=== PATIENT | male | born 1960 | race Caucasian/White ===

== ENCOUNTER 2018-07-13 18:58 | Emergency (ER) | payer BC, SELFPAY ==
[2018-07-13 19:00] VITALS: BP 211/87; PULSE 52; RESP 28; TEMP 36.3; BMI 40.6
[2018-07-13] MEDS: 0.9% Normal Saline 1,000 ML 250 ML IV (20:14)
[2018-07-13] MEDS: Ondansetron 4 MG/2 ML Vial IV (20:14)
[2018-07-13] MEDS: Ketorolac 30 MG/ML Syringe IV (20:15)
[2018-07-13] MEDS: Morphine 4 MG/ML Syringe IV (20:16)
[2018-07-13 20:21] LABS: Absolute Lymphocyte Count 2.73 X10^3/ul (0.83-4.51); Absolute Neutrophil Count 6.1 X10^3/uL (2.0-7.7); Basophil# 0.04 X10^3/uL; Basophil% 0.4 % (0-1); Eosinophil# 0.21 X10^3/uL; Eosinophils% 2.1 % (0-5); Hematocrit 42.1 % (40-54); Hemoglobin 14.8 g/dl (13.0-16.5); Lymphocyte # 2.73 X10^3/ul (4.0); Lymphocyte % 26.8 % (19-41); Mean Corp Hgb Conc 35.2 g/gl (32-36); Mean Corpuscular Hgb 33.7 pg (27.0-32.0); Mean Corpuscular Volume 95.9 fL (80-94); Mean Platelet Vol. 10.5 fl (6.2-12.0); Monocyte# 1.08 X10^3/uL; Monocyte% 10.6 % (0-10); Neutrophil # 6.07 X10^3/uL (2.7-7.7); Neutrophil % 59.7 % (47-70); POSITIVE COUNT NO; POSITIVE DIFFERENTIAL NO; POSITIVE MORPHOLOGY NO; Platelet Count 266 K/mm3 (150-450); RBC Distribution Width CV 12.3 % (11.6-14.6); Red Blood Count 4.39 M/mm3 (4.6-6.2); White Blood Count 10.2 K/mm3 (4.4-11.0)
[2018-07-13 21:03] LABS: Anion Gap 6 (5-15); BUN 24 mg/dL (7-18); BUN/Creat Ratio 15.5 RATIO (10-20); Calcium,Total 8.8 mg/dL (8.5-10.1); Chloride 107 mmol/L (98-107); Creatinine, Serum 1.55 mg/dL (0.70-1.30); EST Glomerular Filtration Rate 49 mL/min (>60); Est Glom Filt Rate - Afr Amer 59 mL/min (>60); Estimated Creatinine Clearance 50.26 ml/min; Glucose 109 mg/dL (74-106); Potassium 4.6 mmol/L (3.5-5.1); Sodium Level 140 mmol/L (136-145)
[2018-07-13 21:04] VITALS: BP 148/69; RESP 15; O2SAT 95
[2018-07-13 21:09] LABS: Bacteria 0 SEEN /hpf (None Seen); Mucous, Urine 0 SEEN /hpf (<or=2+); Squamous Epithelial Cells - UA 0 SEEN /hpf (0-5); White Blood Cells 0 SEEN /hpf (0-5)
[2018-07-13 21:13] LABS: Color, Urine Yellow (Yellow); Glucose, Dipstick Normal (Normal); Ketone-Dipstick Negative (Negative); Leukocyte Esterase-Dipstick Negative /ul (Negative); Nitrite-Dipstick Negative (Negative); Occult Blood-Urine 25 /ul (Negative); Protein-Dipstick Negative (Negative); Urine Bilirubin Dipstick Negative (Negative); Urine Clarity Clear (Clear); Urine Urobilinogen Normal (Normal)
[2018-07-13 21:40] LABS: Red Blood Cells-Urine 5-10 SEEN /hpf (0-5)
--- NOTE | 2018-07-13 22:08 | ED.VISSUMM ---
- ER Visit Summary Date of Service: 07/13/18 Chief Complaint: Abrupt onset of left flank pain with nausea History of Present Illness: The patient is a 57 M who presents with acute left flank pain at rest with nausea. He denies fever, chills or night sweats. He denies any ocular, visual or auditory symptoms. He denies any cardiac or respiratory symptoms. He has no known history of renal ureterolithiasis. He does complain of discomfort in his penis question dysuria. He denies trauma. He denies skin lesions or rash. He denies any past medical history. He has no allergies. Physical Examination: Patient appears uncomfortable. Blood pressure is elevated to 11/87. Respiratory rate was recorded at 28 and heart rate of 52. HEENT exam is unremarkable. Lungs are clear to auscultation. Heart is regular. Abdomen is soft nontender. There is no CVA tenderness. Lower extremity exam is unremarkable. Neuro exam is nonfocal. Test Results: CBC is unremarkable. Basic metabolic panel is marked for an elevated BUN and creatinine are 24 1.55. Urine is remarkable for microscopic hematuria. CT of the abdomen pelvis without contrast reveals a 2 mm stone at the distal portion of the UVJ with mild hydroureter and hydronephrosis. Emergency Department Course and Treatment: IV was established and patient was treated with Toradol since there is no history of renal disease and he has no medical problems. He also received 4 mg of morphine and 4 mg of Zofran. I was informed that his pain was returning. He was given additional dose of morphine. When he was reassessed at 2210 he was pain-free. He was informed of his results and he was informed to stop taking nightly doses of ibuprofen. Treatment Plan: He was referred to urology and given a prescription for Percocet. Since pharmacies are closed he was given a home pack of Percocet. Disposition: Discharged in stable improved condition with outpatient urology referral Impression: 1. Left flank pain secondary to obstructing left UVJ stone 2 mm with hydroureter nephrosis 2. Renal insufficiency This note was generated with Prescreen dictation software. It may contain incorrect words, spelling, and punctuation that were not noted in review of the chart prior to signing ED Disposition - Plan for ED Patient: Disposition: Home or Assisted Living Chief Complaint: Flank Pain Instructions: ED Stone Renal W Colic, ED Insufficiency Renal Prescriptions: Oxycodone HCl/Acetaminophen [Percocet 5/325] 1 tab PO Q6H PRN PRN 5 Days #20 tab PRN Reason: Pain Referrals: Hilario Sharif MD [STAFF PHYSICIAN] - 5-7 Days Additional Instructions: Return immediately if you develop a temperature greater than 100 and shaking chills. Return if the pain is not managed with medication prescribed or you have persistent vomiting
[2018-07-13] MEDS: oxyCODONE 5 MG Tablet PO (22:34)
[2018-07-13 22:40] VITALS: BP 128/69; PULSE 60; RESP 15; O2SAT 94
== END 2018-07-13 22:38 | disposition home or self-care (01) ==
PROVIDERS: Emergency Provider Emergency Medicine; Family Provider Internal Medicine; PCP Internal Medicine
DX: N13.2 Hydronephrosis with renal and ureteral calculous obstruction (principal); N28.9 Disorder of kidney and ureter, unspecified; E66.9 Obesity, unspecified; Z68.41 Body mass index [BMI] 40.0-44.9, adult
CPT/HCPCS: 74176; 80048; 81001; 85025; 96361; 96374; 96375; 99283; J7030; A4216; J2405

== ENCOUNTER → 2018-07-30 09:28 | Outpatient (CLI) | payer BC, SELFPAY ==
[2018-07-30 10:18] LABS: Color, Urine Yellow (Yellow); Glucose, Dipstick Normal (Normal); Ketone-Dipstick Negative (Negative); Leukocyte Esterase-Dipstick Negative /ul (Negative); Nitrite-Dipstick Negative (Negative); Occult Blood-Urine Negative /ul (Negative); Protein-Dipstick Negative (Negative); Urine Bilirubin Dipstick Negative (Negative); Urine Clarity Clear (Clear); Urine Urobilinogen Normal (Normal)
[2018-07-30 10:56] LABS: Creatinine, Serum 1.03 mg/dL (0.70-1.30); EST Glomerular Filtration Rate 79 mL/min (>60); Est Glom Filt Rate - Afr Amer 95 mL/min (>60)
== END ==
PROVIDERS: Family Provider Internal Medicine; PCP Internal Medicine; Visit Provider Nurse Practitioner Adult Health
DX: N20.1 Calculus of ureter (principal); R79.89 Other specified abnormal findings of blood chemistry
CPT/HCPCS: 36415; 81002; 82565

== ENCOUNTER → 2021-04-25 08:54 | Outpatient (CLI) | payer OTHER, SELFPAY ==
[2021-04-25 12:46] LABS: Anion Gap 6 (5-15); BUN 22 mg/dL (7-18); BUN/Creat Ratio 22.4 RATIO (10-20); Calcium,Total 8.5 mg/dL (8.5-10.1); Chloride 108 mmol/L (98-107); Cholesterol 206 mg/dL (200); Creatinine, Serum 0.98 mg/dL (0.70-1.30); EST Glomerular Filtration Rate 82 mL/min (>60); Est Glom Filt Rate - Afr Amer 100 mL/min (>60); Glucose 106 mg/dL (74-106); High Density Lipoprotein 38 mg/dL; Potassium 3.9 mmol/L (3.5-5.1); Sodium Level 140 mmol/L (136-145); Triglycerides 103 mg/dL; Very Low Density Lipoprotein 21 mg/dL (5-40)
== END ==
PROVIDERS: PCP Family Medicine; Referring Provider Family Medicine; Visit Provider Family Medicine
DX: Z12.5 Encounter for screening for malignant neoplasm of prostate (principal); Z13.1 Encounter for screening for diabetes mellitus; Z13.220 Encounter for screening for lipoid disorders
CPT/HCPCS: 36415; 80048; 80061; 84153; G0103

== ENCOUNTER 2021-07-05 19:09 | Emergency (ER) | payer OTHER, SELFPAY ==
[2021-07-05 19:09] VITALS: BP 209/163; PULSE 74; RESP 18; TEMP 36.6; O2SAT 99; BMI 39.5
--- NOTE | 2021-07-05 19:22 | RAD_ITS ---
STUDY: X-RAY - SOFT TISSUE NECK REASON FOR EXAM: Male, 60 years old. Foreign body. Patient feels that a piece of meat stuck in the throat or upper chest. TECHNIQUE: 2 view(s) of the neck were obtained. COMPARISON: Chest, 07/05/2021 FINDINGS: Normal visualized nasopharynx, oropharynx, hypopharynx. Normal epiglottis. Normal visualized subglottic tracheal air column. Normal prevertebral soft tissue structures. Normal visualized osseous structures. The soft tissue structures are unremarkable. RAD/Neck for Soft Tissue IMPRESSION: Normal x-ray soft tissue neck. Electronically Signed: Facundo Doherty DO at 19:43 EDT Tel [phone], Service support ,
--- NOTE | 2021-07-05 19:25 | RAD_ITS ---
STUDY: X-RAY CHEST REASON FOR EXAM: Male, 60 years old. Foreign body. Patient feels that a piece of meat stuck in throat or upper chest. TECHNIQUE: PA and lateral views of the chest. COMPARISON: None. FINDINGS: The lungs are clear and expanded. There is no demonstrated pleural abnormality. Normal size heart. Normal mediastinum and eleni. Normal visualized pulmonary arteries. Normal visualized aortic arch and descending thoracic aorta. Normal visualized thoracic spine. Normal visualized ribs, clavicles, and shoulders. There is no demonstrated abnormality of the visualized soft tissue structures of the upper abdomen. RAD/Chest PA and Lateral IMPRESSION: No acute cardiopulmonary disease. Electronically Signed: Facundo Doherty DO at 19:43 EDT Tel [phone], Service support ,
--- NOTE | 2021-07-05 19:54 | ED.RN ---
WHILE WAITING TO BE SEEN, COCA COLA WAS GIVEN TO THE PATIENT. HE WAS ABLE TO SIP ON COKE AND EVENTUALLY PIECE OF MEAT WENT DOWN. NO LONGER COUGHING/CHOKING. BREATHING WITHOUT DISTRESS.
--- NOTE | 2021-07-05 22:07 | EDS_ITS ---
HPI HPI - GI History of Present Illness Chief Complaint: Foreign Body Informant: patient and spouse/S.O. Narrative Narrative: Patient presents with suspected meat impaction?esophageal. He was eating pulled pork quickly while rushing to get ready for a Zoom meeting. He swallowed and then had trouble getting the piece to go all the way down. He tried to drink some water and it did not work. After he got here, he drank some coke. This did not help. He was getting x-rays. He moved his neck up in a certain way and just felt as though it passed. He has no symptoms now at all. He does not have breathing problems. He never had pain or discomfort. He has not had issues like this in the past. He has no history of GERD/reflux. [facility] Medical History Sleep apnea Home Medications NK 07/05/21 [History Last Taken Unknown] Allergy/AdvReac Type Severity Reaction Status Date / Time No Known Allergies Allergy Verified 07/05/21 19:24 Social History Smoking Status: Never smoker ROS ROS ED Constitutional Constitutional ED: Denies chills or fever(s) ENT ENT ED: Reports other Details: Foreign body sensation?now resolved. Cardiovascular Cardiovascular: Denies chest pain or palpitations Respiratory/Chest Respiratory/Chest: Denies cough or dyspnea Gastrointestinal Gastrointestinal: Reports other Details: See history of present illness ; Denies nausea or vomiting Musculoskeletal Musculoskeletal: Denies back pain or neck pain Allergic/Immunologic Allergic/Immunologic ED: Denies mouth swelling, tongue swelling or urticaria EXAM Physical Exam Const Vital Signs: 07/05/21 19:09 Temperature 98 F Temperature Source Temporal Pulse Rate 74 Respiratory Rate 18 Blood Pressure 209/163 H Blood Pressure Mean 178 Pulse Ox 99 Positive well nourished and well developed General Appearance ED: well developed and NAD HEENT Reports moist mucous membranes HEENT Narrative: Normal voice and handling secretions. I see no lesions masses or abdomen. normocephalic and atraumatic Eyes PERRL and EOMs intact bilaterally Neck no lymphadenopathy and supple Neck Narrative: No stridor mass or tenderness. Resp normal respiratory effort and clear to auscultation bilaterally Cardio regular rate and regular rhythm GI non-tender and non-distended Palpation: soft Extremity full ROM Neuro Sensorium / Orientation: alert and oriented to person Psych mental status grossly normal Skin Lesions: no lesions Rashes: no rashes MDM MDM MDM Narrative Medical decision making narrative: Patient had story consistent with foreign body meat impaction. It is now resolved. I had him drink Diet Coke on the room. He drank over half the can. It goes down and he feels asymptomatic. We will get him home at this time. X-rays of the neck and chest were already been done. There are no acute process. He will get [id number] PPI. He also needs to follow-up about his blood pressure. He does have an appointment on approximately the 14 or 15 of this coming week for this. Radiography Diagnostic Testing: Radiology Impression Soft Tissue Neck X-Ray 07/05/21 19:22 IMPRESSION: Normal x-ray soft tissue neck. Electronically Signed: Facundo Doherty DO at 19:43 EDT Tel [phone], Service support , Chest X-Ray 07/05/21 19:25 IMPRESSION: No acute cardiopulmonary disease. Electronically Signed: Facundo Doherty DO at 19:43 EDT Tel [phone], Service support , Discharge Plan Triage Chief Complaint: Foreign Body ED Provider: Teo Beatty Dx/Rx/DC Orders Clinical Impression: Impacted esophageal foreign body Instructions: ED Esophageal Foreign Body, Resolved Prescriptions: No Action NK RF: 0 Primary Care Provider: Damon Moody Referrals: Damon Moody MD [Primary Care Provider] - Keep Farrah appointment Disposition Disposition: Home, Self Care
== END 2021-07-05 22:36 | disposition home or self-care (01) ==
PROVIDERS: Emergency Provider Emergency Medicine; PCP Family Medicine
DX: T18.128A Food in esophagus causing other injury, initial encounter (principal); X58.XXXA Exposure to other specified factors, initial encounter; Y93.89 Activity, other specified; Y92.9 Unspecified place or not applicable; Y99.9 Unspecified external cause status
CPT/HCPCS: 70360; 71046; 99284

== ENCOUNTER → 2022-04-02 | Outpatient (CLI) | payer OTHER, SELFPAY ==
--- NOTE | 2022-04-02 17:26 | RAD_ITS ---
STUDY: X-RAY CHEST REASON FOR EXAM: Male, 61 years old. COUGH TECHNIQUE: PA and lateral views of the chest. COMPARISON: 03/05/2021. FINDINGS: The lungs are clear and expanded. There is no demonstrated pleural abnormality. Normal size heart. Normal mediastinum and eleni. Normal visualized pulmonary arteries. Normal visualized aortic arch and descending thoracic aorta. Normal visualized thoracic spine. Normal visualized ribs, clavicles, and shoulders. There is no demonstrated abnormality of the visualized soft tissue structures of the upper abdomen. RAD/Chest PA and Lateral IMPRESSION: Normal x-ray examination of the chest. Electronically Signed: Yenny Rizvi MD at 1:57 EDT ,
== END | disposition home or self-care (01) ==
LOC: MTRAD 17:24
PROVIDERS: PCP Family Medicine; Referring Provider Family Medicine; Visit Provider Family Medicine
DX: R05.9 Cough, unspecified (principal)
CPT/HCPCS: 71046

== ENCOUNTER → 2022-10-05 | Outpatient (CLI) | payer OTHER, SELFPAY ==
--- NOTE | 2022-10-05 13:26 | MRI_ITS ---
STUDY: MRI RIGHT HIP REASON FOR EXAM: Male, 62 years old. sharp PAIN IN HIP while standing and walking x 1 year no injury TECHNIQUE: Standardized fat and water weighted pulse sequences were obtained in all 3 orthogonal planes. Pelvic/bilateral hip images are included in several sequences. COMPARISON: CT of abdomen and pelvis dated July 13, 2019 FINDINGS: Normal hip joint without articular joint space narrowing. Small bilateral hip joint effusions are present. No visualized marrow edema or occult fractures or avascular necrosis. No demonstrated labral tears or detachment or para labral cysts in either hip. Normal acetabulum. Normal labrum. Normal femoral head. Normal femoral neck and intratrochanteric region. Normal gluteus minimus, medius and iliopsoas tendons and distal insertions. There is no trochanteric, iliopsoas or iliopectineal bursitis. Normal superior and inferior pubic rami. Normal pubic symphysis. Normal ischial tuberosity. Normal origin of the hamstring tendons. Normal visualized iliac wing, sacroiliac joint, and sacral ala. Normal visualized soft tissue structures of the pelvis. MRI/Lower Ext Joint Only (Routine) IMPRESSION: 1. Small bilateral hip joint effusions are present. No visualized marrow edema or occult fractures or avascular necrosis. No demonstrated labral tears or detachment or para labral cysts in either hip. Electronically Signed: Samson Soares MD at 15:58 EST ,
== END | disposition home or self-care (01) ==
PROVIDERS: PCP Family Medicine; Visit Provider Specialist
DX: M25.551 Pain in right hip (principal)
CPT/HCPCS: 73721

== ENCOUNTER → 2024-09-01 | Outpatient (CLI) | payer OTHER, SELFPAY ==
[2024-09-01 07:42] LABS: Anion Gap 6 (5-15); BUN 26 mg/dL (7-18); BUN/Creat Ratio 23.4 RATIO (10-20); Calcium,Total 8.8 mg/dL (8.5-10.1); Chloride 107 mmol/L (98-107); Cholesterol 215 mg/dL (200); Creatinine, Serum 1.11 mg/dL (0.70-1.30); EST Glomerular Filtration Rate 71 mL/min (>60); Est Glom Filt Rate - Afr Amer 86 mL/min (>60); Glucose 118 mg/dL (74-106); High Density Lipoprotein 46 mg/dL; Potassium 4.3 mmol/L (3.5-5.1); Sodium Level 139 mmol/L (136-145); Triglycerides 117 mg/dL; Very Low Density Lipoprotein 23 mg/dL (5-40)
== END | disposition home or self-care (01) ==
LOC: LAB 06:05
PROVIDERS: PCP Family Medicine; Referring Provider Family Medicine; Visit Provider Family Medicine
DX: I10 Essential (primary) hypertension (principal); Z12.5 Encounter for screening for malignant neoplasm of prostate
CPT/HCPCS: 36415; 80048; 80061; 84153; G0103

== ENCOUNTER → 2024-09-24 | Outpatient (CLI) | payer OTHER, SELFPAY ==
--- NOTE | 2024-09-24 | IMM_PTH ---
PATHOLOGY RESULTS PATIENT: MELVIN BANDA LOC: [facility] U#:[id number] AGE/SX: 63/M ROOM: RE09/24/[address]: Dr. Hilario Sharif MD : 1960 BED: DIS: 09/24/2024 SPEC #: [id number] RECD: 09/28/24 11:53 STATUS: MARÍA REQ #: [id number] IRENE: 09/24/24 00:[address]: Hilario Sharif DEPT: IMMUNOHISTOCHEMISTRY RECD BY: Timothy Valdivia ENTERED: 09/28/24 11:54 SP TYPE: IMMUNO OTHR DR: Dr. Dani Moody MD Tissues: PROSTATE LEFT Procedures: 34BE12 (add) P40 (initial) PHYSICIAN & INSTITUTION [place] [id number] SPECIMEN INFORMATION: Tissue Source: F- Left base Clinical Info: Elevated PSA Specimen Number: [id number] CPT code: 76862,36243 METHODOLOGY: Deparaffinized sections of prefer/formalin-fixed tissue or PAP/DQ stained slides are incubated with monoclonal/polyclonal antibodies/oligonucleotide probes. Localization is made via biotin free immunoperoxidase method. Appropriate controls are performed and reacted as expected. Results on target cell population are indicated in the following table: RESULTS: ANTIBODY / CLONE RESULT Block F P40 (BC28) negative 34BE12 (34BE12) negative These tests were developed and their performance characteristics determined by [facility]. They may not have been cleared or approved by the U.[place]. Food and Drug Administration. The FDA has determined that such clearance or approval is not necessary. The above immunohistochemical/dualISH markers are ordered and reviewed by the Pathologist. INTERPRETATION: F. Prostate, left base, core biopsy: A minute focus of adenocarcinoma. 09/29/2024
--- NOTE | 2024-09-24 | PROSBIL_PTH ---
PATHOLOGY RESULTS PATIENT: MELVIN BANDA LOC: [facility] U#:[id number] AGE/SX: 63/M ROOM: RE09/24/[address]: Dr. Hilario Sharif MD : 1960 BED: DIS: 09/24/2024 SPEC #: [id number] RECD: 09/25/24 09:16 STATUS: MARÍA ARANACristino #: [id number] IRENE: 09/24/24 00:[address]: Hilario Sharif DEPT: SURGICAL PATHOLOGY RECD BY: Chris Cade ENTERED: 09/25/24 09:17 SP TYPE: PROST BX SUNIL DR: Dr. Dani Moody MD Tissues: PROSTATE RIGHT PROSTATE RIGHT PROSTATE RIGHT PROSTATE LEFT PROSTATE LEFT PROSTATE LEFT Procedures: PROSTATE BX HEADER OPERATION: Prostate biopsy PRE-OP DIAGNOSIS: Elevated PSA TISSUE SUBMITTED: A - Right apex, B - Right mid, C - Right base, D - Left apex, E - Left mid, F - Left base MICROSCOPIC DIAGNOSIS A. Right prostate, apex, core biopsy: Prostatic adenocarcinoma. Inman grade: 5+4=9 Number of cores involved: 1/1 Proportion of tissue involved: >95% Perineural invasion: Present. Greatest tumor length: 1.1 cm B. Right prostate, mid, core biopsy: Prostatic adenocarcinoma. Inman grade: 5+4=9 Number of cores involved: 1/1 Proportion of tissue involved: >95% Perineural invasion: Not identified. Greatest tumor length: 1.0cm C. Right prostate, base, core biopsy: Prostatic adenocarcinoma. Ritesh grade: 4+3=7 Number of cores involved: 1/1 Proportion of tissue involved: >95% Perineural invasion: Not identified. Greatest tumor length: 1.1 cm D. Left prostate, apex, core biopsy: Prostatic adenocarcinoma. Inman grade: 4+3=7 Number of cores involved: 1/1 Proportion of tissue involved: ~70% Perineural invasion: Present. Greatest tumor length: 0.7 cm E. Left prostate, mid, core biopsy: Prostatic adenocarcinoma. Inman grade: 4+3=7 Number of cores involved: 1/1 Proportion of tissue involved: ~20% Perineural invasion: Not identified. Greatest tumor length: 0.2cm F. Left prostate, base, core biopsy: A minute focus of prostatic adenocarcinoma. Ritesh grade: 3+4=7 Number of cores involved: 1/1 Proportion of tissue involved: <5% Perineural invasion: Not identified. Greatest tumor length: <0.1 cm See comment. PITO/ 09/28/2024 COMMENT F. Immunohistochemistry ([id number]) supports the above diagnosis. MICROSCOPIC DESCRIPTION Slides are reviewed. GROSS DESCRIPTION A - Received is one container designated prostate, right apex. The specimen consists of one elongated fragments of light reddy-white soft tissue measuring 1.4 cm in length and 0.1 cm in diameter. The specimen is totally submitted in one cassette. B - Received is one container designated prostate, right mid. The specimen consists of one elongated fragments of light reddy-white soft tissue measuring 1.2 cm in length and 0.1 cm in diameter. The specimen is totally submitted in one cassette. C - Received is one container designated prostate, right base. The specimen consists of one elongated fragments of light reddy-white soft tissue measuring 1.2 cm in length and 0.1 cm in diameter. The specimen is totally submitted in one cassette. D - Received is one container designated prostate, left apex. The specimen consists of one elongated fragments of light reddy-white soft tissue measuring 1.0 cm in length and 0.1 cm in diameter. The specimen is totally submitted in one cassette. E - Received is one container designated prostate, left mid. The specimen consists of one elongated fragments of light reddy-white soft tissue measuring 0.8 cm in length and 0.1 cm in diameter. The specimen is totally submitted in one cassette. F - Received is one container designated prostate, left base. The specimen consists of one elongated fragments of light reddy-white soft tissue measuring 0.7 cm in length and 0.1 cm in diameter. The specimen is totally submitted in one cassette. / 09/25/2024 TC:0 CPT: 07379 x6
--- OUTSIDE RECORDS SUMMARY | 2024-09-24 18:49 | XMS RPT_ITS | CCD ---
Author Organization [facility] Inform ion Partnership [facility] Care Team Providers Care Supervisor Grower Name Role Phone Kings Moody MD Primary Care Provider ARELI PRIDE Attending Unavailable KINGS MOODY Primary Care Unavailabl e Medications Current Medications Medication Drug Class(es) Dates Sig (Normalized) Sig (Original) [id number] 200 actuat albuterol 0.09 mg/actuat metered dose inhaler (4 sources) beta2-Adrenergic Agonist Start: 03-08-2022 take 2 puff(s) by inhalation four times daily as needed albuterol HFA (PROVENTIL HFA, VENTOLIN HFA) 90 mcg/actuation inhaler INHALE 2 PUFFS 4 TIMES DAILY NEEDED 0 03/08/2022 Active Comment on above: INHALE 2 PUFFS 4 BRENNA ES DAILY NEEDED amoxicillin 875 mg oral tablet (1 source) Penicillin-class Antibacterial Start: 05-18-2024 End: 05-25-2024 take 1 tablet by mouth twice daily amoxicillin (AMOXIL) 875 mg tablet Indications: Pain, dental Take 1 tablet by mouth two times a day for 7 days. 14 tablet 0 05/18/2024 05/25/2024 Active ibuprofen 200 mg oral tablet (6 sources) Nonsteroidal Anti-inflammatory Drug ibuprofen (ADVIL ORAL) Take 200 mg by mouth as needed. Takes 600 mg 0 Active Comment on above: Take 200 mg by mouth as needed. 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] Onset: 09-23-2013 11-20-2021 Chronic Other nutritional; endocrine; and metabolic disorders (6 sources) Body mass index 30+ - obesity; Translations: [Body mass index (BMI) 38.0-38.9, adult] Onset: 10-15-2005 06-16-2019 Chronic Other screening for suspected conditions (not mental disorders or infectious disease) (2 sources) Patient encounter status; Translations: [Encounter for screening for malignant neoplasm of colon] Episodic Residual codes; unclassified (6 sources) Obstructive sleep apnea syndrome; Translations: [Obstructive sleep apnea (adult) (pediatric)] Onset: 10-15-2005 11-20-2021 Chronic Superficial injury; contusion (1 source) Insect bite of upper limb; Translations: [Insect bite (nonvenomous) of right wrist, initial encounter] Episodic Past or Other Problems Problem Classification Problem Date Documented Da te Episodic/Chronic Abdominal hernia (6 sources) Umbilical hernia; Translations: [Umbilical hernia without obstruction or gangrene] Onset: 06-16-2019 06-16-2019 Episodic Calculus of urinary tract (6 sources) History of calculus of kidney; Translations: [Personal history of urinary calculi] Onset: 06-16-2019 06-16-2019 Episodic Sprains and strains (1 source) Sprain of shoulder rotator cuff; Translations: [Sprain of unspecified rotator cuff capsule, initial encounter] Onset: 09-05-2007 Resolved: 06-07-2010 06-07-2010 Episodic Results Test Name Value Interpretation Reference Range Facil ity OVon 05-18-2024 CNOV Office Visit (UCWSTR ) MELVIN BANDA ([id number]) 1960 M Date Time Provider Department 05/18/24 5:45 PM ARELI PRIDE [facility] During your visit today, we recorded the following information about you: Temperature Pulse Respiration Blood pressure 101.2 degrees 92/minute 16/minute 158/82 Weight 121.3 kg Areli Pride APRN.HEARING AID TECHNICIAN 05/18/2024 6:14 PM Signed Subjective Patient came in with complaints of pain in the left upper tooth. Patient does have a fever. Patient denies any other symptoms associated with it such as chest pain shortness of breath headache nausea vomiting.. Patient says it started on Saturday. The history is provided by the patient. No language asst was used. Dental Problem Review of Systems Constitutional: Negative. Skin: Negative. Objective Physical Exam Constitutional: Appearance: Normal appearance. HENT: Mouth/Throat: Comments: Patient has cracked tooth in the area marked above. No signs of abscess. Pulmonary: Effort: Pulmonary effort is normal. Neurological: Mental Status: He is alert. PAST MEDICAL HISTORY Diagnosis Date Abscess of chest (HCC) 10/06/13 Narcolepsy 09/23/2013 Dr. Fields. Obesity, unspecified 10/15/2005 MAGUE on CPAP 10/15/2005 Dr. Fields Other and unspecified hyperlipidemia Unspecified hemorrhoids without mention of complication Unspecified sleep apnea 10/15/2005 CPAP PAST SURGICAL HISTORY Procedure Laterality Date ARTHROTOMY W/MENISCUS REPAIR KNEE 06/2000 Open knee reconstruction, ACL right knee COLONOSCOPY 03/05/2022 repeat in 5 years HEMORRHOIDECTOMY INTERNAL RUBBER BAND LIGATIONS 11/2005 Hemorrhoidectomy HERNIA REPAIR HX RPR UMBILICAL HRNA 5 YRS/> REDUCIBLE 07/08/2019 Hernia repair, umbilical >5yr SIGMOIDOSCOPY FLX DX W/COLLJ SPEC BR/WA IF PFRMD 11/2005 Sigmoidoscopy, flexible TONSILLECTOMY HX TONSILLECTOMY PRIMARY/SECONDARY Tonsillectomy ALLERGIES Patient has no known allergies. MEDICATIONS ibuprofen (ADVIL ORAL) Take 200 mg by mouth as needed. Takes 600 mg amoxicillin (AMOXIL) 875 mg tablet Take 1 tablet by mouth two times a day for 7 days. albuterol HFA (PROVENTIL HFA, VENTOLIN HFA) 90 mcg/actuation inhaler INHALE 2 PUFFS 4 TIMES DAILY NEEDED FAMILY HISTORY Problem Relation Age of Onset Heart disease Mother Stroke Mother Dementia Mother Diabetes Father Cancer Maternal Grandfather Diabetes Paternal Uncle Social History Tobacco Use Smoking status: Never Smokeless tobacco: Never Tobacco comments: He used to chew cigars for 4 yrs, quit 5 yrs. ago. He never smoked. Vaping Use Vaping Use: Never used Substance Use Topics Alcohol use: No Drug use: No ASSESSMENT/PLAN: 1. Pain, dental - ICD9: 525.9, ICD10: K08.89 - AMOXICILLIN 875 MG TABLET Went Over strict red flag symptoms and when to follow-up with. Patient will go to the ER if anything worsens. Patient was okay with this care plan. Patient will also call around to get a dentist established. Areli Pride APRN.HEARING AID TECHNICIAN Allergies As of Date: 05/18/2024 (No Known Allergies) Date Reviewed: 05/18/2024 Reviewed by: Delicia Robertson - Fully Assessed Reason for Visit: Dental Problem [31] Cmt: Left side toothpan x3 days Primary Visit Diagnosis:Pain, dental [K08.89] Order(s):amoxicillin (AMOXIL) 875 mg tabletTake 1 tablet by mouth two times a day for 7 days.Disp: 14 tabletRfl: 0 Prescriptions as of 05/18/2024 - amoxicillin (AMOXIL) 875 mg tablet Take 1 tablet by mouth two times a day for 7 days. - albuterol HFA (PROVENTIL HFA, VENTOLIN HFA) 90 mcg/actuation inhaler INHALE 2 PUFFS 4 TIMES DAILY NEEDED - ibuprofen (ADVIL ORAL) Take 200 mg by mouth as needed. Takes 600 mg Problem List As Of Date 05/18/2024 Noted Resolved MAGUE on CPAP [G47.33] 10/15/2005 BMI 38.0-38.9,adult [Z68.38] 10/15/2005 HEMORRHOIDS NOS [K64.9] Rotator Cuff (Capsule) Sprain and Strain [S43.4*09/05/2007 06/07/2010 Narcolepsy [G47.419] 09/23/2013 History of kidney stones [Z87.442] 06/16/2019 Umbilical hernia without obstruction and withou*06/16/2019 Prescriptions ordered this encounter Disp Refills Start End AMOXICILLIN 875 MG TABLET 14 t* 0 05/18/2024 05/25/2024 Route: ORAL Sig: Take 1 tablet by mouth two times a day for 7 days. Encounter Status:Closed by ARELI PRIDE on 05/18/24 Normal [facility] No Panel Informationon 03-05 [facility] ANES Cecilio 07-08-2019 ANES POST HNO ID: [id number] Author: Trey Easton Service: Anesthesiology Author Type: Anesthesiologist Type: Anesthesia PostOp Filed: 07/08/2019 1:18 PM Note Text: POST ANESTHESIA EVALUATION NOTE SERVICE DATE: 07/08/2019 SERVICE TIME: 1:18 PM : 1960 Vitals: 07/08/19 0629 07/08/19 0845 07/08/19 0925 Temp: 36.3 ?C (97.3 ?F) 37 ?C (98.6 ?F) 36.8 ?C (98.2 ?F) 07/08/19 0845 07/08/19 0900 07/08/19 0915 07/08/19 0925 BP: 158/81 132/61 121/61 125/62 07/08/19 0845 07/08/19 0900 07/08/19 0915 07/08/19 0925 Pulse: 69 67 60 63 07/08/19 0845 07/08/19 0900 07/08/19 0915 07/08/19 0925 Resp: 16 20 17 16 07/08/19 0845 07/08/19 0900 07/08/19 0915 07/08/19 0925 SpO2: 97% 95% 95% 95% Validated Vital Signs: Yes POST ANES STATUS: No apparent anesthetic complications. The patient is appropriately hydrated with stable respiratory and cardiovascular status. Patient has safe and adequate airway control. The patient has appropriate pain relief and no significant post operative nausea or vomiting. The patient has achieved baseline mental status. Further assessment by Anesthesia Service: None Other Remarks: SIGNATURE: Trey Easton MD PATIENT NAME: Melvin Banda DATE: July 08, 2019 TIME: 1:18 PM PAGER/CONTACT #: [phone] [facility] ANES PREOPon 07-08-2019 ANES PREOP HNO ID: [id number] Author: Trey Easton Service: Anesthesiology Author Type: Anesthesiologist Type: Anesthesia PreOp Filed: 07/08/2019 7:12 AM Note Text: ANESTHESIOLOGY DAY OF SURGERY NOTE SERVICE DATE: 07/08/2019 SERVICE TIME: 7:12 AM : 1960 Procedure(s) (LRB): REPAIR HERNIA UMBILICAL REDUCIBLE, > 5 YEARS, < 18 YEARS (N/A) Surgeon(s): Deric Resendiz Estimated body mass index is 38.77 kg/m? as calculated from the following: Height as of 06/12/19: 172.7 cm (5' 8 ). Weight as of 06/12/19: 115.7 kg (255 lb). Most recent hematocrit and potassium results: Hematocrit 43.8 06/12/2019 Potassium 4.5 07/07/2019 ANES DOS/PREOP NOTE: Vitals: 07/08/19 0629 BP: 128/75 Pulse: 72 Resp: 16 Temp: 36.3 ?C (97.3 ?F) SpO2: 96% ACTIVE PROBLEM LIST Mague On Cpap Bmi 38.0-38.9,Adult Unspecified Hemorrhoids Without Mention of Complication Narcolepsy History of Kidney Stones Umbilical Hernia Without Obstruction and Without Gangrene PAST MEDICAL HISTORY Diagnosis Date - Abscess of chest (HCC) 10/06/13 - Narcolepsy 09/23/2013 Dr. Fields. - Obesity, unspecified 10/15/2005 - MAGUE on CPAP 10/15/2005 Dr. Fields - Other and unspecified hyperlipidemia - Unspecified hemorrhoids without mention of complication - Unspecified sleep apnea 10/15/2005 CPAP PAST SURGICAL HISTORY Procedure Laterality Date - ARTHROTOMY,OPEN REPAIR MENISCUS 1999 Open knee reconstruction, ACL right knee - HEMORRHOID;BAND LIGAT, SNGL/MUL Hemorrhoidectomy - REMOVAL OF TONSILS,<12 Y/O Tonsillectomy - SIGMOIDOSCOPY FLEX DIAG Sigmoidoscopy, flexible FAMILY HISTORY Problem Relation Age of Onset - Cancer Maternal Grandfather - Diabetes Paternal Uncle - Heart disease Mother - Diabetes Father Social History: Social History Tobacco Use - Smoking status: Never Smoker - Smokeless tobacco: Never Used - Tobacco comment: He used to chew tobacco for 4 yrs, quit 5 yrs. ago. He never smoked. Substance Use Topics - Alcohol use: No - Drug use: No No current facility-administered medications on file prior to encounter. Current Outpatient Medications on File Prior to Encounter: modafinil (PROVIGIL) 200 mg ORAL tablet Take 2 tablets by mouth once daily. TYLENOL 325 MG TAB Take two(2) tablets every four(4) to six(6) hours as needed. Current Facility-Administered Medications Medication Dose Route Frequency Provider Last Rate Last Dose - lactated ringers infusion 30 mL/hr INTRAVENOUS CONTINUOUS Deric Resendiz 30 mL/hr at 07/08/19 0630 30 mL/hr at 07/08/19 0630 - ceFAZolin iv piggyback 2 g in D5W (iso-osmotic) 100 mL (ANCEF) 2 g INTRAVENOUS Pre-Op Once Deric Resendiz Allergies: ALLERGIES No Known Allergies DOS EXAM: Adequate NPO status: Yes Anesthetic risks, benefits, alternatives, personnel and consent discussed: Yes Patient agrees to proceed: Yes Previous Anesthesia: No history of adverse event. Airway Assessment: MP 2; Neck ROM: Full ROM without neurologic symptoms; Airway Evaluation: No significant abnormalities Symptoms of Sleep Apnea: Snoring Dentition: Teeth intact Additional Physical Exam: Lungs: Patient health status unchanged since recent history and physical. See history and physical for exam findings. Cardiac: Patient health status unchanged since recent history and physical. See history and physical for exam findings. Additional Pertinent Findings: N/A Blood Products: Not anticipated for this procedure. Anesthetic Plan: MAC with Sedation Pain Management Plan: Parenteral or Oral ASA Class: 3 Other Medical Problems: mague obesity I have interviewed and examined the patient. I have reviewed the medical record and/or the pre-anesthesia evaluation, pertinent labs, and test results. Significant changes in the patient's condition since the History and Physical, not otherwise documented in primary service progress notes: No This contains updated information obtained within 48 hours of Surgery/Procedure. SIGNATURE: Trey Easton MD PATIENT NAME: Melvin Banda DATE: July 08, 2019 TIME: 7:12 AM CSN: [id number] [facility] BRIEF OP NOTon 07-08-2019 BRIEF OP NOT HNO ID: [id number] Author: Deric Resendiz Service: General Surgery Author Type: Physician Type: Brief Op Note Filed: 07/08/2019 9:38 AM Note Text: BRIEF OPERATIVE NOTATION FOR SURGICAL PROCEDURE. Melvin Banda 1960 [id number] male LOG ID: [id number] Surgery/Procedure Date: 07/08/2019 Incision/Procedure Start Time: 8:01 AM Incision Close/Procedure End Time: 8:33 AM Surgeon(s)/Procedurali st(s) and Sr. Operations Manager(s): Surgeon(s) and Role: * Deric Resendiz - Primary Physician Sr. Operations Manager: Carson Crowe (Pa) (Mitch) Danisha REFERRING PHYSICIAN: Outpatient DEPT: R[facility]IA PROVIDER: Minh POS: [id number] ANESTHESIA: General ASA CLASS: 2 - mild DIAGNOSIS: umbilical hernia PROCEDURE: umbilical hernia repair - [id number] IVF: 400 EBL: minimal Specimens: negligible ADDITIONAL DIAGNOSES: FINDINGS: 1cm defect COMPLICATIONS: None PMHx - PAST MEDICAL HISTORY Diagnosis Date - Abscess of chest (HCC) 10/06/13 - Narcolepsy 09/23/2013 Dr. Fields. - Obesity, unspecified 10/15/2005 - MAGUE on CPAP 10/15/2005 Dr. Fields - Other and unspecified hyperlipidemia - Unspecified hemorrhoids without mention of complication - Unspecified sleep apnea 10/15/2005 CPAP COMORBIDITIES - Obesity Post Op Occurrences - None Wound Classification - Clean Operative note dictated in the dictation system. - [id number] Deric Resendiz MD [facility] HISTORY PHYSICALon HISTORY PHYSICAL HNO ID: [id number] Author: Deric Resendiz Service: General Surgery Author Type: Physician Type: HANDP Filed: 07/08/2019 7:31 AM Note Text: HISTORY AND PHYSICAL ? Melvin Rodrigues Solo 1960 ? ? REFERRING PHYSICIAN: Self ? CHIEF COMPLAINT: Consult (consult Umbilical hernia) ? HPI: Melvin is a 58 year old male with a complaint of a bulge without discomfort in his umbilical region. The patient denies any discomfort but notes a very small bulges umbilicus. ? The patient notes no symptoms of bowel obstruction and denies nausea or vomiting. The patient was seen by his primary care physician who felt the patient has a hernia. Melvin was referred for evaluation and treatment. ? The patient is being seen by me today at the request of Dr. Ramone Escamilla MD for my opinion and advice regarding an asymptomatic umbilical hernia. ? The patient returns now wishing to have his umbilical hernia repaired. ? ? PAST?MEDICAL?HISTORY PAST MEDICAL HISTORY Diagnosis Date - Abscess of chest (HCC) 10/06/13 - Narcolepsy 09/23/2013 ? Dr. Fields. - Obesity, unspecified 10/15/2005 - MAGUE on CPAP 10/15/2005 ? Dr. Fields - Other and unspecified hyperlipidemia ? - Unspecified hemorrhoids without mention of complication ? - Unspecified sleep apnea 10/15/2005 ? CPAP ? ? PAST?SURGICAL?HISTORY PAST SURGICAL HISTORY Procedure Laterality Date - ARTHROTOMY,OPEN REPAIR MENISCUS ? 1999 ? Open knee reconstruction, ACL right knee - HEMORRHOID;BAND LIGAT, SNGL/MUL ? ? Hemorrhoidectomy - REMOVAL OF TONSILS,<12 Y/O ? ? ? Tonsillectomy - SIGMOIDOSCOPY FLEX DIAG ? ? Sigmoidoscopy, flexible ? ? ? CURRENT?MEDICATIONS ? Current Outpatient Medications: modafinil (PROVIGIL) 200 mg ORAL tablet Take 2 tablets by mouth once daily. ketorolac (TORADOL) 10 mg tablet Take 1 tablet by mouth every 6 hours as needed. Given injection in office albuterol HFA (VENTOLIN HFA) 90 mcg/actuation inhaler Inhale 2 Puffs as instructed every 4 hours as needed for Wheezing/Shortness of Breath. TYLENOL 325 MG TAB Take two(2) tablets every four(4) to six(6) hours as needed. ? No current facility-administered medications for this visit. ? ALLERGIES: Patient has no known allergies. ? 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 ago. He never smoked. 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 ADL RESPONSE: No ADL RESPONSE: Yes ADL RESPONSE: Not Asked ADL RESPONSE: Yes ADL RESPONSE: Yes ADL RESPONSE: Not Asked ADL RESPONSE: Yes [place], bicycle ADL RESPONSE: Not Asked ADL RESPONSE: Yes ADL RESPONSE: Not Asked Social History Narrative Not on file ? FAMILY HISTORY: FAMILY?HISTORY FAMILY HISTORY Problem Relation Age of Onset - Cancer Maternal Grandfather ? - Diabetes Paternal Uncle ? - Heart disease Mother ? - Diabetes Father ? ? ? REVIEW OF SYMPTOMS: The review of systems data was entered by the nurse and reviewed by me ? Nursing Notes: Yousuf Richa LIU 05/22/2019 3:39 PM Signed REVIEW OF SYSTEMS: ?General:???The patient notes fatigue, denies weight loss, denies weight gain, denies feeling hot, and denies feelings of cold. ?Eyes: ?The patient denies glaucoma, denies eye injury/surgery, wears glasses or contacts. ?Ear/Nose/Throat: ?The patient denies allergies, denies hayfever, denies ear infections, and denies bloody noses. ?Cardiovascular: ?The patient denies chest pain, denies heart disease, denies high blood pressure,denies cardiac stent, denies prior heart attack, denies irregular heart beat, NOTES high cholesterol, ?denies poor circulation, denies heart failure, other cardiac issues, denies claudication, denies cold feet, denies peripheral arterial stent. ?Respiratory: ?The patient denies tuberculosis, denies pneumonia, denies frequent cough, denies pulmonary embolism, denies shortness of breath, and denies coughing up blood. ?Gastrointestinal: ?The patient denies difficulty swallowing, denies acid reflux, denies ulcers, denies vomiting, denies jaundice/hepatitis, denies gallbladder problems, denies black or tarry stools, NOTES hemorrhoids, denies bleeding from rectum, denies diverticulitis, denies constipation, denies diarrhea, denies loss of stool control, and denies hernias. ?Kidney/Bladder: ?The patient NOTES kidney stones, denies urine infections, and denies bloody urine. ?Skin: ?The patient denies a history of skin cancer, denies bleeding/changing moles, and denies a history of skin rash. ?Neurologic: ?The patient denies a history of epilepsy/convulsions, denies headaches, denies head/spinal injuries, and denies stroke/TIA. ?Psychiatric: ?The patient denies psychiatric medications, denies depression, and denies voices, denies substance abuse. ?Endocrine: ?The patient denies thyroid disorders, denies diabetes, and denies hormonal problems. ?Hematologic: ?The patient denies a history of bruising, denies bleeding, and denies anemia, denies blood clots. ?Infections: ?The patient denies a history of measles and mumps, denies rheumatic fever, and denies sexually transmitted diseases. ?Musculoskeletal: ?The patient denies back pain/injury, denies back problems, denies sciatica, denies knee/foot trouble, denies arthritis, or denies gout. ? ? PHYSICAL EXAMINATION: ? General: The patient is 58 year old male, well nourished, well hydrated in no acute distress. The patient is oriented to time, place, and person. ? VITALS: Blood pressure 138/72, pulse 81, temperature 36.3 ?C (97.3 ?F), temperature source Temporal Artery, height 172.7 cm (5' 8 ), weight 117.8 kg (259 lb 12.8 oz), SpO2 95 %. Body mass index is 39.5 kg/m?. ? HEENT: Normal cephalic, ataumatic, pupils are equally round, sclera are anicteric, mucous membranes are moist, oropharynx is clear. Neck has no masses, asymmetry or lymphadenopathy. Thyroid is unremarkable. ? Respiratory: Clear to auscultation and percussion. Normal respiratory excursion and pattern. ? Cardiac: Examination is regular rate and rhythm. ? Abdominal exam: Soft, nontender, with no palpable masses. No hepatosplenomegaly. A small, reducible umbilical hernia, no right or left inguinal hernias are noted ? Rectal exam: exam deferred ? Extremities: no clubbing, cyanosis or edema. No adenopathy. ? Other: ? ? LABORATORY VALUES: As Noted ? RADIOLOGIC STUDIES: As Noted ? Assessment IMPRESSION: umbilical hernia ? PLAN: I plan to perform umbilical hernia repair. The planned surgical procedure was discussed extensively with the patient. The risks, benefits and anticipated outcomes of the procedure, the risks and benefits of the alternatives to the procedure, and the roles and tasks of the personnel to be involved, were discussed with the patient. My staff has also explained the procedure in understandable terms and the patient was given the option to take printed material concerning the planned procedure. The patient had the opportunity to ask questions concerning the planned procedure. The patient freely consents to the planned procedure. ? Anticipated Surgical Procedure/ CPT Code: umbilical hernia repair - 62259-468 ? Anticipated Anesthetic: General ? Patient weight: Blood pressure 138/72, pulse 81, temperature 36.3 ?C (97.3 ?F), temperature source Temporal Artery, height 172.7 cm (5' 8 ), weight 117.8 kg (259 lb 12.8 oz), SpO2 95 %. BMI: Body mass index is 39.5 kg/m?. ? Planned antibiotic: Ancef 2gm IVPB music rehabilitation therapist to OR ? SCDs needed - Yes ? Sr. Operations Manager Needed - Yes ? Diagnoses: (K42.9) Umbilical hernia without obstruction or gangrene (primary encounter diagnosis) ? ? ? Return to Clinic: The patient is instructed to follow-up with me as needed. ? Deric Resendiz MD [facility] NURSING PROGon 07-08-2019 NURSING PROG HNO ID: [id number] Author: Ruby (Rn) ZOË Barros Service: Nursing Author Type: Registered Nurse Type: Nursing Progress Note Filed: 07/08/2019 9:21 AM Note Text: 0845 pt to PACU. Awakes easily to VS. Remains drowsy. 3L nc sats 97-98%. Mdl abd drsg DANDI. PIV DANDI. VSS No s/sx of distress. 0900 pt tolerates ice chips denies nausea. 0920 report called to Iliana CAMP in ASCU. 0925 pt to ASCU. [facility] OPERATIVE NOon 07-08-2019 OPERATIVE NO HNO ID: [id number] Author: Deric Resendiz Service: General Surgery Author Type: Physician Type: Operative Report Filed: 07/09/2019 6:07 AM Note Text: [facility] - Operative Report SOLOMELVIN : 1960 AGE: 58. SEX: M PATIENT TYPE: A HOSP SVC: GENS LOCATION: [facility] [place][NOTE 3] ATTENDING PHYSICIAN: DERIC RESENDIZ CSN NUMBER: [id number] DATE OF SURGERY/PROCEDURE: 07/08/2019 INCISION/PROCEDURE START TIME: 8:01 INCISION CLOSE/PROCEDURE END TIME: 8:53. PREOPERATIVE DIAGNOSIS: Umbilical hernia. POSTOPERATIVE DIAGNOSIS: Umbilical hernia with small than 1 cm defect. SURGEON: Deric Resendiz M.D. SMOKE CONTROL SUPERVISOR: BOO Pool. SURGERY/PROCEDURE: Simple umbilical hernia repair. ANESTHESIA: LMA. LOG ID NUMBER: [id number]. ANESTHESIOLOGIST: Trey Easton. ASA: 2. IV FLUIDS: 400 mL. ESTIMATED BLOOD LOSS: Minimal. URINE OUTPUT: No catheter. FINDINGS: As described above. SPECIMENS: None. DRAINS: None. COMPLICATION: None. DISPOSITION: The patient was taken to PACU in stable condition. DESCRIPTION OF PROCEDURE: The patient was brought to the operative suite and after the umbilical site was marked in the holding area, the patient concurred this was planned operative site. . Sign-in was performed verifying patient, site, procedure, position, critical nursing information, VTE and antibiotic prophylaxis. The patient received 2 grams of Ancef and sequential pressure devices placed. Following LMA anesthesia, the patient's abdomen was prepped and draped in the usual fashion. Following this, time-out was performed verifying patient, site, procedure, position. A curvilinear incision was marked on the umbilicus. Local anesthetic injected, incision made. Dissection down to the subcutaneous fat to the fascia. The umbilical root and hernia sac were surrounded at the level of the fascia. The umbilical root was transected off the hernia sac. There was no significant tissue and the fascial defect margin was cleaned to decent fascia with a total defect of less than 1 cm. At this point, the fascial defect was closed with interrupted 0 Prolene sutures. The umbilical was tacked down with 3-0 Vicryl suture. Subcutaneous fat closed with 3-0 Vicryl sutures. Skin was closed with 4-0 Biosyn interrupted subcuticular sutures. Steri-Strips and dressings were applied. The patient tolerated the procedure well and was brought to recovery room in stable condition Deric Resendiz M.D. RG:[id number] /[id number] [facility] PT EDon 07-08-2019 PT ED HNO ID: [id number] Author: Iliana VarelaRn) Jameel RN Service: Nursing Author Type: Registered Nurse Type: Patient Education Filed: 07/08/2019 9:34 AM Note Text: POST OP LEARNING RESPONSE INSTRUCTION PROVIDED TO: Patient and family member METHOD OF INSTRUCTION: Written instruction - handouts PATIENT / FAMILY RESPONSE: Verbalizes understanding of: POST-OPERATIVE INSTRUCTIONS-Correct actions to take to reduce postoperative complications FOLLOW-UP PLAN: Patient instructed to call with any further issues SUPPLEMENTAL MATERIAL: None REFERRAL (RECOMMENDATION): None Electronically Signed By: Iliana Jorgensen RN In Department: [facility] SURGERY [facility] PT ED HNO ID: [id number] Author: Cammie VarelaRn) ZOË Choi Service: Nursing Author Type: Registered Nurse Type: Patient Education Filed: 07/08/2019 6:19 AM Note Text: PRE OP LEARNING ASSESSMENT PROCEDURE/SURGERY: SURGERY: READINESS TO LEARN COGNITIVE ABILITY: Alert and oriented MOTIVATION TO LEARN: Eager FAMILY SUPPORT: High - Very involved in pt care PATIENT LEARNS BEST BY: Verbal Instruction FACTORS AFFECTING LEARNING: None PHYSICAL LIMITATIONS AFFECTING LEARNING: None Electronically Signed By: Cammie Choi RN In Department: [facility] SURGERY [facility] NURSING PROGon 07-07-2019 NURSING PROG HNO ID: [id number] Author: Sherlyn (Rn) Gay RN Service: ? Author Type: Registered Nurse Type: Nursing Progress Note Filed: 07/07/2019 3:35 PM Note Text: PACC Nurse Progress Note History AND Physical: PACC Visit Date: 06/12/19 Original HANDP Date: N/A ED visit Date: N/A Outside HANDP Scanned Date: N/A Labs Within Last 6 Months: CBC: Date 06/12/19-within acceptable limits BMP/CMP: Date 06/12/19-(serum glucose-218)-07/07/19-s wanda MARINELLI-repeat BMP done 07/07/19- in process. HgbA1C Date: 07/07/19- in process Imaging Within Last 12 Months: CT Scan-flank Date of test: 04/10/19 See chart Cardiac Testing: N/A Last Menstrual Period: LMP Date: N/A Postmenopausal >1yr: N/A, S/P Hysterectomy: N/A BMI Percentile (PEDS): N/A Risk Assessment: N/A Anesthesia Review: N/A Narrative: Per HPI: MAGUE-uses CPAP/BMI-38.71 07/07/19-called and left message of abnormal lab-elevated glucose and to get repeat labs done today; call back number given. Pre-op Considerations: -Elevated glucose-no history of DM Chart Check: IN PROGRESS-repeat lab results Sherlyn Rashid RN July 07, 2019 8:17 AM [facility] HOSPon 05-22-2019 HOSP Patient:Melvin Banda MRN: Height:5' 8 (1.727 m) Weight:255 lb (115.667 kg) Outpatient Medications as of 07/08/19: modafinil (PROVIGIL) 200 mg ORAL tablet TYLENOL 325 MG TAB Admission/Clinic Administered Medications as of 07/08/19: lactated ringers infusion ceFAZolin iv piggyback 2 g in D5W (iso-osmotic) 100 mL (ANCEF) Problem List: MAGUE on CPAP [G47.33, Z99.89] BMI 38.0-38.9,adult [Z68.38] Unspecified hemorrhoids without mention of complication [K64.9] Narcolepsy [G47.419] History of kidney stones [Z87.442] Umbilical hernia without obstruction and without gangrene [K42.9] Allergies: No Known Allergies Date Verified:07/08/19 Lab Values Lab Value Units Date High Low POTA* 4.5 mmol/L 07/07/2019 5.1 3.7 ALFREDA* 43.8 % 06/12/2019 51.0 39.0 Progress Notes (PRE [facility]): Felisha Dorsey APRN.HEARING AID TECHNICIAN 07/07/2019 10:59 AM Signed ----- Message from Sherlyn (Zoë) ZOË Rashid sent at 07/07/2019 8:15 AM EDT ----- Regarding: elevated glucose/ OR- 07/08/19- Dr. Marbella Baeza, Can you review lab- serum glucose-218; no history of DM, not sure if he has a PCP for follow-up. Do you want to order another bmp for DOS? Thanks, Aleyda Rashid PACC ZOË Dorsey APRN.HEARING AID TECHNICIAN 07/07/2019 11:00 AM Signed Please recheck BMP DOS due to elevated glucose. If still elevated pt needs to f/u with PCP for management. Sherlyn Rashid, RN, RN 07/07/2019 1:08 PM Signed Called and left message of elevated serum glucose of 218, and repeat labs (serum BMP and HGBA1c) ordered and can go to any [facility] lab today if possible. Call back number given Progress Notes ([facility]): Jossy Covarrubias [facility] 06/18/2019 10:28 AM Signed ----- Message from Silvana (Kevin) Lorri sent at 06/18/2019 10:02 AM EDT ----- Patient has not seen Dr. Escamilla or any internal medicine providers since 2012. Please find out if he plans on continuing with Dr. Escamilla as PCP, if so he will need to schedule appointment to re-establish care. Please remove Dr. Escamilla as PCP EDDIE Vides [facility] 06/18/2019 10:43 AM Signed PSS please call patient and assist with scheduling an appointment to est care. Thank you. Khushbu Padilla Pss 06/19/2019 11:37 AM Signed First attempt to contact patient.... Left detailed message. Asking if he has another pcp if he would notify us and if not If he could please call and schedule an appointment with Dr. Escamilla for a yearly physical Melvarosa elena Saldivarman 06/23/2019 2:58 PM Signed Patient has appointment with Dr. Escamilla on 08/19. Normal [facility] Vital Signs Date Time Vital Sign Value Performing Clinician Facility 05-18-2024 17:52-0400 Body mass index (BMI) [Ratio] 40.66 kg/m2 Areli Pride APRN.CNP Work Phone: [facility] 05-18-2024 17:52-0400 Body temperature 101.19 [degF] Areli Pride APRN.CNP Work Phone: [facility] 05-18-2024 17:52-0400 Body weight 121.3 kg Areli Pride APRN.CNP Work Phone: [facility] 05-18-2024 17:52-0400 Diastolic blood pressure 82 mm[Hg] Areli Pride APRN.HEARING AID TECHNICIAN Work Phone: [facility] 05-18-2024 17:52-0400 Heart rate 92 /min Areli Pride APRN.HEARING AID TECHNICIAN Work Phone: [facility] 05-18-2024 17:52-0400 Respiratory rate 16 /min Areli Pride APRN.HEARING AID TECHNICIAN Work Phone: [facility] 05-18-2024 17:52-0400 SaO2% (BldA) [Mass fraction] 97 % Areli Pride APRN.HEARING AID TECHNICIAN Work Phone: [facility] 05-18-2024 17:52-0400 Systolic blood pressure 158 mm[Hg] Areli Pride APRN.HEARING AID TECHNICIAN Work Phone: [facility] 03-23-2022 17:08-0400 Body temperature 98.1 [degF] Marvin Easton MD Work Phone: [facility] 03-23-2022 17:08-0400 Body weight 127.37 kg Marvin Easton MD Work Phone: [facility] 03-23-2022 17:08-0400 Diastolic blood pressure 78 mm[Hg] Marvin Easton MD Work Phone: [facility] 03-23-2022 17:08-0400 Heart rate 65 /min Marvin Easton MD Work Phone: [facility] 03-23-2022 17:08-0400 Respiratory rate 21 /min Marvin Easton MD Work Phone: [facility] 03-23-2022 17:08-0400 SaO2% (BldA) [Mass fraction] 98 % Marvin Easton MD Work Phone: [facility] 03-23-2022 17:08-0400 Systolic blood pressure 130 mm[Hg] Marvin Easton MD Work Phone: [facility] 03-05-2022 13:30-0400 Diastolic blood pressure 75 mm[Hg] Carson Martines MD Work Phone: [facility] 03-05-2022 13:30-0400 Heart rate 66 /min Carson Martines MD Work Phone: [facility] 03-05-2022 13:30-0400 Respiratory rate 16 /min Carson Martines MD Work Phone: [facility] 03-05-2022 13:30-0400 SaO2% (BldA) [Mass fraction] 95 % Carson Martines MD Work Phone: [facility] 03-05-2022 13:30-0400 Systolic blood pressure 131 mm[Hg] Carson Martines MD Work Phone: [facility] 03-05-2022 11:47-0400 Body temperature 97.81 [degF] Carson Martines MD Work Phone: [facility] 03-05-2022 11:47-0400 Body weight 126.6 kg Carosn Martines MD Work Phone: [facility] Encounters Encounter Date Encounter Type Care Provider Facility Start: 05-18-2024 End: 05-18-2024 ambulatory ARELI PRIDE Facility:[facility] Start: 05-18-2024 End: 05-18-2024 Patient encounter procedure Areli Pride APRN.HEARING AID TECHNICIAN Work Phone: [facility] Comment on above: Pain, dental (Primar y Dx) Start: 04-06-2022 E-mail encounter fro m caregiver Carson [facility] MD [facility] Phone[facility] Start: 04-06-2022 Follow-up encounter Carson aiken MD Work Phone: General Surgery Comment on above: Colonoscopy follow u p Start: 04-04-2022 Telephone encounter Carson aiken MD Work Phone: General Surgery Comment on above: Procedure Follow Up (Colonoscopy completed on 03/05/2022) Start: 03-23-2022 End: 03-23-2022 Patient encounter procedure Marvin Easton MD Work Phone: [facility] Comment on above: Insect bite of right wrist, initial encounter (Primary Dx) Start: 03-05-2022 End: 03-05-2022 Subsequent hospital visit by physician Carson Martines MD Work Phone: Ambulatory Surgery Comment on above: Screening for colon cancer [Z12.11] Start: 12-06-2021 Telephone encounter Carson iaken MD Work Phone: General Surgery Comment on above: 03-05-2022 Colon ASC DP Procedures Date Procedure Procedure Detail Performing Clinician Start: 03-05-2022 Colon ca scrn not hi rsk ind Carson Martines MD Work Phone: Start: 03-05-2022 Colonoscopy Carson valentine MD Work Phone: Start: 11-22-2005 Lipid 1996 panel - S jaquelin or Plasma Areli Pride APRN.HEARING AID TECHNICIAN Work Phone: Plan of Treatment Date Care Activity Detail Author Start: 11-25-2027 Urine microalbumin profile DTaP,Tdap,Td Vaccine (3 - Td or Tdap) [facility] Start: 03-05-2027 Colonoscopy COLONOSCOPY [facility] Start: 03-05-2027 COLORECTAL CANCER SCREENING COLORECTAL CANCER SCREENING [facility] Start: 03-05-2027 Screening for malign ant neoplasm of colon [facility] Start: 07-26-2024 Influenza vaccination Influenz a Vaccine (Season Ended) [facility] Start: 11-25-2023 Behavioral Health Screening Behavioral Health Screening [facility] Start: 07-26-2023 Covid-19 Vaccine ( season) Covid-19 Vaccine ( season) [facility] Start: 03-05-2023 Colonoscopy COLONOSCOPY [facility] Start: 03-05-2023 COLORECTAL CANCER SCREENING COLORECTAL CANCER SCREENING [facility] Start: 07-26-2022 Influenza vaccination INFLUENZ A (Season Ended) [facility] Start: 07-07-2022 DIABETES SCREEN DIABETES SCREEN [facility] Start: 07-07-2022 Diabetes Screening Diabetes Screenin g [facility] Start: 07-12-2021 COVID-19 VACCINE (3 - Booster for Pfizer series) COVID-19 VACCINE (3 - Booster for Pfizer series) [facility] Start: 06-07-2020 Urine microalbumin profile DTAP,TDAP,TD (2 - Td or Tdap) [facility] Start: 2019 RSV Vaccine (1 - 1-d ose 60+ series) RSV Vaccine (1 - 1-dose 60+ series) [facility] Start: 2014 PROSTATE CANCER SCREENING DISCUSSION PROSTATE CANCER SCREENING DISCUSSION [facility] Start: 2014 Prostate specific antigen measurement Prostate Cancer Screening Discussion [facility] Start: 11-22-2010 Lipid panel Lipid Screening [facility] Start: 11-22-2010 LIPID SCREEN LIPID SCREEN [facility] Start: 2009 SHINGRIX VACCINE (1 of 2) SHINGRIX VACCINE (1 of 2) [facility] Start: 2004 COLOGUARD (FIT-DNA) COLOGUARD (FIT-D NA) [facility] Start: [address] COLONOGRAPHY [facility] Start: 2004 FECAL OCCULT BLOOD FECAL OCCULT BLOO D [facility] Start: 2004 Screening for malign ant neoplasm of colon [facility] Start: 2004 SIGMOIDOSCOPY SIGMOIDOSCOPY [facility] Start: 1977 HEPATITIS C SCREENING HEPATITIS C [facility] Start: 1977 Hepatitis C screening Hepatitis C [facility] Start: 1977 HIV SCREENING HIV SCREENING [facility] Start: 1977 HIV screening HIV Screening [facility] Start: 1971 Adult depression screening assessment DEPRESSION SCREENING [facility] SURGICAL PATHOLOGY [facility] Work Phone: Comment on above: Release Upon Braydenin g for 1 Occurrences starting 03/05/2022, 1 completed Immunizations Immunization Date Immunization Notes Care Provider Fa cility 08-26-2019 influenza virus vacc ine, unspecified formulation Areli Pride APRN.CNP Work Phone: [facility] 12-19-2016 typhoid vaccine, parenteral, other than acetone-killed, dried Carson Martines MD Work Phone: [facility] 09-23-2013 influenza virus vacc ine, unspecified formulation Carson Martines MD Work Phone: [facility] 02-07-2011 hepatitis A and hepatitis B vaccine Carson Martines MD Work Phone: [facility] Work Phone: 11-08-2010 influenza virus vacc ine, live, attenuated, for intranasal use Carson Martines MD Work Phone: [facility] 08-30-2010 hepatitis A and hepatitis B vaccine Carson Martines MD Work Phone: [facility] Work Phone: 06-27-2010 hepatitis A and hepatitis B vaccine Carson Martines MD Work Phone: [facility] Work Phone: 06-07-2010 tetanus toxoid, redu damien diphtheria toxoid, and acellular pertussis vaccine, adsorbed Carson Martines MD Work Phone: [facility] Work Phone: 11-12-2005 influenza virus vacc ine, unspecified formulation Carson Martines MD Work Phone: [facility] Work Phone: 11-25-2002 pneumococcal polysaccharide vaccine, 23 valent Carson Martines MD Work Phone: [facility] Work Phone: Payers Date Payer Category Payer Unknown MMO MMO [employer] [id number] 2019-Present [phone] [address] [place] [address] PPO [id number] 2019 Unknown MMO MMO [employer] PPO [id number] 2019-Present [phone] [address] [place] [address] PPO [id number] 2019 Unknown [id number] Social History Date Type Detail Facility Start: 10-06-2013 End: 05-18-2024 Tobacco smoking status NHIS Never smoked tobacco [facility] Start: 10-06-2013 End: 05-18-2024 Tobacco use and exposure Smokeless tobacco non-user [facility] Start: 03-05-2022 End: 05-18-2024 Alcohol intake Current non-drinker of alcohol (finding) [facility] Start: 03-05-2022 End: 05-18-2024 Tobacco Comment He used to chew cigars for 4 yrs, quit 5 yrs. ago. He never smoked. [facility] Start: 1960 Sex Assigned At Male C [facility] Start: 02-23-2022 End: 03-23-2022 Exposure to SARS-CoV-2 (event) Not sure [facility] Start: 10-30-2020 End: 05-18-2024 History of Social function [facility] Start: 10-30-2020 End: 05-18-2024 Tobacco use panel [facility] National Score (1-10 0), lower number is lower risk Not on file [facility] Start: 03-02-2022 Gender identity Identifies as male gender (finding) [facility] Start: 03-02-2022 Sexual orientation Heterosexual (fin ding) [facility] Clinical Notes 09-05-2007 to 05-18-2024 Areli Pride APRN.HEARING AID TECHNICIAN - 05/18/2024 5:53 PM EDTTelephone Encounter - Annelise Gongora RN - 04/06/2022 3:33 PM EDTTelephone Encounter - Emily Cherry PA-C - 04/04/2022 12:36 PM EDT Note Date & Type Note Facility 05-18-2024 Note HNO ID: [id number] Author: ARELI PRIDE APRN.HEARING AID TECHNICIAN Service: ? Author Type: Nurse Practitioner Type: Progress Notes Filed: 05/18/2024 18:14 Note Text: Subjective Patient came in with complaints of pain in the left upper tooth. Patient does have a fever. Patient denies any other symptoms associated with it such as chest pain shortness of breath headache nausea vomiting.. Patient says it started on Saturday. The history is provided by the patient. No language asst was used. Dental Problem Review of Systems Constitutional: Negative. Skin: Negative. Objective Physical Exam Constitutional: Appearance: Normal appearance. HENT: Mouth/Throat: Comments: Patient has cracked tooth in the area marked above. No signs of abscess. Pulmonary: Effort: Pulmonary effort is normal. Neurological: Mental Status: He is alert. PAST MEDICAL HISTORY Diagnosis Date Abscess of chest (HCC) 10/06/13 Narcolepsy 09/23/2013 Dr. Fields. Obesity, unspecified 10/15/2005 MAGUE on CPAP 10/15/2005 Dr. Fields Other and unspecified hyperlipidemia Unspecified hemorrhoids without mention of complication Unspecified sleep apnea 10/15/2005 CPAP PAST SURGICAL HISTORY Procedure Laterality Date ARTHROTOMY W/MENISCUS REPAIR KNEE 06/2000 Open knee reconstruction, ACL right knee COLONOSCOPY 03/05/2022 repeat in 5 years HEMORRHOIDECTOMY INTERNAL RUBBER BAND LIGATIONS 11/2005 Hemorrhoidectomy HERNIA REPAIR HX RPR UMBILICAL HRNA 5 YRS/> REDUCIBLE 07/08/2019 Hernia repair, umbilical >5yr SIGMOIDOSCOPY FLX DX W/COLLJ SPEC BR/WA IF PFRMD 11/2005 Sigmoidoscopy, flexible TONSILLECTOMY HX TONSILLECTOMY PRIMARY/SECONDARY Tonsillectomy ALLERGIES Patient has no known allergies. MEDICATIONS ibuprofen (ADVIL ORAL) Take 200 mg by mouth as needed. Takes 600 mg amoxicillin (AMOXIL) 875 mg tablet Take 1 tablet by mouth two times a day for 7 days. albuterol HFA (PROVENTIL HFA, VENTOLIN HFA) 90 mcg/actuation inhaler INHALE 2 PUFFS 4 TIMES DAILY NEEDED FAMILY HISTORY Problem Relation Age of Onset Heart disease Mother Stroke Mother Dementia Mother Diabetes Father Cancer Maternal Grandfather Diabetes Paternal Uncle Social History Tobacco Use Smoking status: Never Smokeless tobacco: Never Tobacco comments: He used to chew cigars for 4 yrs, quit 5 yrs. ago. He never smoked. Vaping Use Vaping Use: Never used Substance Use Topics Alcohol use: No Drug use: No ASSESSMENT/PLAN: 1. Pain, dental - ICD9: 525.9, ICD10: K08.89 - AMOXICILLIN 875 MG TABLET Went Over strict red flag symptoms and when to follow-up with. Patient will go to the ER if anything worsens. Patient was okay with this care plan. Patient will also call around to get a dentist established. Areli Pride APRN.[facility] 05-18-2024 History of Presen t illness Narrative Images from the original note were not included. Subjective Patient came in with complaints of pain in the left upper tooth. Patient does have a fever. Patient denies any other symptoms associated with it such as chest pain shortness of breath headache nausea vomiting.. Patient says it started on Saturday. The history is provided by the patient. No language asst was used. Dental Problem Review of Systems Constitutional: Negative. Skin: Negative. Objective Physical Exam Constitutional: Appearance: Normal appearance. HENT: Mouth/Throat: Comments: Patient has cracked tooth in the area marked above. No signs of abscess. Pulmonary: Effort: Pulmonary effort is normal. Neurological: Mental Status: He is alert. PAST MEDICAL HISTORY Diagnosis Date Abscess of chest (HCC) 10/06/13 Narcolepsy 09/23/2013 Dr. Fields. Obesity, unspecified 10/15/2005 MAGUE on CPAP 10/15/2005 Dr. Fields Other and unspecified hyperlipidemia Unspecified hemorrhoids without mention of complication Unspecified sleep apnea 10/15/2005 CPAP PAST SURGICAL HISTORY Procedure Laterality Date ARTHROTOMY W/MENISCUS REPAIR KNEE 06/2000 Open knee reconstruction, ACL right knee COLONOSCOPY 03/05/2022 repeat in 5 years HEMORRHOIDECTOMY INTERNAL RUBBER BAND LIGATIONS 11/2005 Hemorrhoidectomy HERNIA REPAIR HX RPR UMBILICAL HRNA 5 YRS/> REDUCIBLE 07/08/2019 Hernia repair, umbilical >5yr SIGMOIDOSCOPY FLX DX W/COLLJ SPEC BR/WA IF PFRMD 11/2005 Sigmoidoscopy, flexible TONSILLECTOMY HX TONSILLECTOMY PRIMARY/SECONDARY <AGE 12 Tonsillectomy ALLERGIES Patient has no known allergies. MEDICATIONS ibuprofen (ADVIL ORAL) Take 200 mg by mouth as needed. Takes 600 mg amoxicillin (AMOXIL) 875 mg tablet Take 1 tablet by mouth two times a day for 7 days. albuterol HFA (PROVENTIL HFA, VENTOLIN HFA) 90 mcg/actuation inhaler INHALE 2 PUFFS 4 TIMES DAILY NEEDED FAMILY HISTORY Problem Relation Age of Onset Heart disease Mother Stroke Mother Dementia Mother Diabetes Father Cancer Maternal Grandfather Diabetes Paternal Uncle Social History Tobacco Use Smoking status: Never Smokeless tobacco: Never Tobacco comments: He used to chew cigars for 4 yrs, quit 5 yrs. ago. He never smoked. Vaping Use Vaping Use: Never used Substance Use Topics Alcohol use: No Drug use: No ASSESSMENT/PLAN: 1. Pain, dental - ICD9: 525.9, ICD10: K08.89 - AMOXICILLIN 875 MG TABLET Went Over strict red flag symptoms and when to follow-up with. Patient will go to the ER if anything worsens. Patient was okay with this care plan. Patient will also call around to get a dentist established. Areli Pride APRN.KEVIN documented in this encounter [facility] 04-06-2022 Miscellaneous Notes Post.B[employer] message sent regarding colonoscopy results. Health maintenance and surgical history updated and recall letter placed. Annelise Gongora RN Pathology showed sessile serrated polyp, recommend follow up colonoscopy in 5 years. Please update HM and generate recall letter Melvin had a colonoscopy completed on 03/05/[address] Carson Martines. The patient was instructed to call for results of pathology. Could you please review the pathology and advise? Annelise Gongora RN documented in this encounter [facility] 03-23-2022 History of Presen t illness Narrative Patient presents with: Insect Bite: on right arm happened last weekend HPI: Skin Lesion: Location: Right wrist/forearm Duration: Woke with holes in his wrist at a hotel in [facility] after visiting the [place] 1 week ago Pruritis/Pain: NO Change: NO Drainage/blister/pustule/ulcera tion: Central scab/hole with red surrounding Treatment: None. He was treated with prednisone and a zpak about 2 weeks ago for URI. MEDICATIONS: ibuprofen (ADVIL ORAL) Take 200 mg by mouth as needed. Takes 600 mg albuterol HFA (PROVENTIL HFA, VENTOLIN HFA) 90 mcg/actuation inhaler INHALE 2 PUFFS 4 TIMES DAILY NEEDED ALLERGIES: ALLERGIES No Known Allergies VITALS: BP 130/78 Pulse 65 Temp 36.7 C (98.1 F) Resp 21 Wt 127.4 kg (280 lb 12.8 oz) SpO2 98% BMI 42.70 kg/m PE: Pleasant, in no acute distress. There are 4 lesions on the right distal forearm. The primary lesion is 1.5cm irregular lesion with defined slightly raised bumpy red area with central 3mm dark eschar/scale on the ventral distal forearm. There is a confluent similar red plaque over the right distal radius with 3 1mm pit/eschar along the center. There is no warmth or fluctuance. Radial pulse intact. No epitrochlear lymph node enlargement. Left 5th finger has healing irregular laceration of the distal phalange pad with peeling near the wound but without erythema or induration. ASSESSMENT/PLAN: 1. Insect bite of right wrist, initial encounter - ICD9: 913.4, E906.4, ICD10: S60.861A, W57.XXXA Suspect arthropod envenomation such as a spider or millipede. The lesions are not tender or pruritic so no treatment is recommended beyond observation. May need referral to wound care if the lesions ulcerate significantly. He and his did not elaborate on the details of his pinkie finger laceration. May have benefited from suturing at the time of injury but appears to be healing adequately. Marvin Easton MD documented in this encounter [facility] 03-05-2022 Nurse Note Patient has passed a lot of air rectally. Denies pain or nausea. Mary Jo Keith RN Pt received in PACU. Pt moderately drowsy, but arouses easily. Appears comfortable. Abd soft and non distended. Mary Jo Keith RN [facility] PRE[facility]OP NURSING HAND OFF NOTE SBAR Hand off given to Jodie Cisneros RN. Hand off was communicated verbally and at the patient's bedside and all questions were answered. Jossie Madison RN documented in this encounter [facility] 03-05-2022 History and physical note Images from the original note were not included. HISTORY AND PHYSICAL Melvin Banda 1960 REFERRING PHYSICIAN: Kings Moody, * CHIEF COMPLAINT: Consult (colonscopy) HPI: The patient is a 61 year old male referred for endoscopy. Melvin notes no colon complaints. Patient denies any change in bowel habits, weight changes, blood in stools, black tarry stools or abdominal pain. Denies family history of colon issues. The patient notes no upper GI complaints. Melvin has not undergone prior endoscopy. Patient's past medical history is significant for sleep apnea for which he uses a CPAP. Patient follows with Dr. Moody in primary care. Patient denies chest pain, shortness of breath or recent hospitalizations. Denies problems with sedation in the past. PAST MEDICAL HISTORY PAST MEDICAL HISTORY Diagnosis Date Abscess of chest (HCC) 10/06/13 Narcolepsy 09/23/2013 Dr. Fields. Obesity, unspecified 10/15/2005 MAGUE on CPAP 10/15/2005 Dr. Fields Other and unspecified hyperlipidemia Unspecified hemorrhoids without mention of complication Unspecified sleep apnea 10/15/2005 CPAP PAST SURGICAL HISTORY PAST SURGICAL HISTORY Procedure Laterality Date ARTHROTOMY,OPEN REPAIR MENISCUS 1999 Open knee reconstruction, ACL right knee HEMORRHOID;BAND LIGAT, SNGL/MUL Hemorrhoidectomy REMOVAL OF TONSILS,<12 Y/O Tonsillectomy REPAIR UMBILICAL LEX,5+Y/O,REDUC 07/08/2019 Hernia repair, umbilical >5yr SIGMOIDOSCOPY FLEX DIAG Sigmoidoscopy, flexible CURRENT MEDICATIONS Current Outpatient Medications Medication Sig ibuprofen (ADVIL ORAL) Take 200 mg by mouth as needed. Takes 600 mg peg 3350-Electrolytes (GOLYTELY) 236-22.74-6.74 -5.86 gram suspension Take 4,000 mL by mouth one time only for 1 dose. No current facility-administered medications for this visit. ALLERGIES: Patient has no known allergies. PERSONAL HISTORY: SOCIAL HISTORY Social History Tobacco Use Smoking status: Never Smoker Smokeless tobacco: Never Used Tobacco comment: He used to chew tobacco for 4 yrs, quit 5 yrs. ago. He never smoked. Vaping Use Vaping Use: Never used Substance Use Topics Alcohol use: No Drug use: No FAMILY HISTORY: FAMILY HISTORY FAMILY HISTORY Problem Relation Age of Onset Heart disease Mother Stroke Mother Dementia Mother Diabetes Father Cancer Maternal Grandfather Diabetes Paternal Uncle REVIEW OF SYMPTOMS: The review of systems data was entered by the nurse and reviewed by wv Nursing Notes: Patria UshaNOE mcclelland 12/06/2021 9:52 AM Signed REVIEW OF SYSTEMS: General: The patient denies fatigue, denies weight loss, denies weight gain, denies feeling hot, and denies feelings of cold. Eyes: The patient denies glaucoma, denies eye injury/surgery, wears glasses or contacts. Ear/Nose/Throat: The patient denies allergies, denies hayfever, notes ear infections, and denies bloody noses. Cardiovascular: The patient denies chest pain, denies heart disease, denies high blood pressure,denies cardiac stent, denies prior heart attack, denies irregular heart beat, denies high cholesterol, denies poor circulation, denies heart failure, other cardiac issues, denies claudication, denies cold feet, denies peripheral arterial stent. Respiratory: The patient denies tuberculosis, denies pneumonia, denies frequent cough, denies pulmonary embolism, denies shortness of breath, and denies coughing up blood. Gastrointestinal: The patient denies difficulty swallowing, denies acid reflux, denies ulcers, denies vomiting, denies jaundice/hepatitis, denies gallbladder problems, denies black or tarry stools, denies hemorrhoids, denies bleeding from rectum, denies diverticulitis, denies constipation, denies diarrhea, denies loss of stool control, and denies hernias. Kidney/Bladder: The patient notes kidney stones, denies urine infections, and denies bloody urine. Skin: The patient denies a history of skin cancer, denies bleeding/changing moles, and denies a history of skin rash. Neurologic: The patient denies a history of epilepsy/convulsions, denies headaches, denies head/spinal injuries, and denies stroke/TIA. Psychiatric: The patient denies psychiatric medications, denies depression, and denies voices, denies substance abuse. Endocrine: The patient denies thyroid disorders, denies diabetes, and notes hormonal problems. Hematologic: The patient denies a history of bruising, denies bleeding, and denies anemia, denies blood clots. Infections: The patient denies a history of measles and mumps, denies rheumatic fever, and denies sexually transmitted diseases. Musculoskeletal: The patient denies back pain/injury, denies back problems, denies sciatica, denies knee/foot trouble, denies arthritis, or denies gout. When was patient's last Mammogram screening? N/A Last Colonoscopy: None Patria Kerr LPN I have confirmed and edited as necessary, the PFSH and ROS obtained by others. Emily Cherry PA-C PHYSICAL EXAMINATION: General: The patient is 61 year old male, well nourished, well hydrated in no acute distress. The patient is oriented to time, place, and person. VITALS: Blood pressure 128/68, pulse 68, temperature 36.6 C (97.9 F), height 172.7 cm (5' 8 ), weight 126.6 kg (279 lb), SpO2 97 %. Body mass index is 42.42 kg/m . HEENT: Normal cephalic, ataumatic, pupils are equally round, sclera are anicteric, mucous membranes are moist, oropharynx is clear. Neck has no masses, asymmetry or lymphadenopathy. Respiratory: Clear to auscultation and percussion. Normal respiratory excursion and pattern. Cardiac: Examination is regular rate and rhythm. Normal S1/S2 Abdominal exam: Soft, nontender, with no palpable masses. No hepatosplenomegaly. No palpable hernias. Extremities: no clubbing, cyanosis or edema. No adenopathy. LABORATORY VALUES: As Noted RADIOLOGIC STUDIES: As Noted Assessment IMPRESSION: encounter for screening colonoscopy PLAN: I have reviewed my findings with the surgeon. Will plan for lower endoscopy. We discussed the risks and benefits of the planned endoscopy. I have informed the patient that complications can occur including failure to complete the endoscopy and perforation. The patient had the opportunity to ask questions concerning the planned endoscopy. My staff has also explained the procedure to the patient in understandable terms and has given the patient printed material concerning the procedure. The patient freely consents to surgery. The patient was offered a surgery/procedure at a [facility] facility. I have counseled the patient regarding the risk of exposure to and/or potential harm posed by the COVID-19 virus with having a surgery/procedure at this time versus the risk of delaying the surgery/procedure. It is not possible to know either the risk of delaying the surgery or procedure or chance of getting an infection with perfect accuracy, but a joint decision was made between the patient and myself to proceed at this time with endoscopy. I plan to use Golytely bowel preparation Diagnoses: (Z12.11) Encounter for screening for malignant neoplasm of colon (primary encounter diagnosis) Consultation requested by Dr. Moody for an opinion regarding colon cancer screening. My final recommendations will be communicated back to the requesting physician by way of shared Medical record or letter to requesting physician via US mail. Emily Cherry PA-C UPDATED HISTORY AND PHYSICAL EXAMINATION SERVICE DATE: 03/05/2022 SERVICE TIME: 11:59 AM PHYSICAL EXAM MUST BE COMPLETED ON ADMISSION The History and Physical (completed in the past 30 days) has been reviewed and the patient has been examined. The contents accurately reflect the patient's condition with the following additions or revisions since the H&P was completed. Examination indicates no changes. This H&P can be found in the attached. SIGNATURE: Carson Martines III, MD PATIENT NAME: Melvin Banda DATE: March 05, 2022 TIME: 11:59 AM documented in this encounter [facility] 12-06-2021 Miscellaneous Notes 03-05-2022 Colon ASc documented in this encounter [facility] 09-05-2007 History of Past i llness Narrative Problem Noted Date Resolved Date Rotator cuff (capsule) sprain 09/05/2007 documented as of this encounter (statuses as of 03/06/2022) [place] [address]-12-2007 History of Past illness Narrative* Problem Noted Date Resolved Date Rotator cuff (capsule) sprain 09/05/2007 documented as of this encounter (statuses as of 03/08/2022) [address]12-2007 History of Past illness Narrative* Problem Noted Date Resolved Date Rotator cuff (capsule) sprain 09/05/2007 documented as of this encounter (statuses as of 03/23/2022) [address]-2007 History of Past illness Narrative* Problem Noted Date Resolved Date Rotator cuff (capsule) sprain 09/05/2007 documented as of this encounter (statuses as of 04/06/2022) [address]2007 History of Past illness Narrative* Problem Noted Date Resolved Date Rotator cuff (capsule) sprain 09/05/2007 documented as of this encounter (statuses as of 04/06/2022) [facility]* Diagnosis Screening for colon cancer Special screening for malignant neoplasms, colon documented [facility]* Diagnosis Screening for colon cancer- Primary Special screening for malignant neoplasms, colon [facility] Diagnosis Insect bite of right wrist, initial encounter- Primary documented in this encounter [facility] note* Diagnosis Pain, dental- Primary Unspecified disorder of the teeth and supporting structures documented in this encounter [facility] for referral (narrative)* Outpatient Procedure (Routine) - Closed Specialty Diagnoses / Procedures Referred By Katy t Referred To Contact [facility] Diagnoses Screening for colon cancer Procedures COLONOSCOPY SCREENING COLONOSCOP W/ OR W/O [facility] SPEC Carson Martines MD [address] [place] [address] [facility] [address] [place] [id number] Referral ID Status Reason Start Date Expiration Date V isits Requested Visits Authorized [id number] Closed Auto-Generate d Referral 12/06/2021 12/06/2022 1 1 [facility] for referral (narrative)* Outpatient Procedure (Routine) - Closed Specialty Diagnoses / Procedures Referred By Katy hill Referred To Contact [facility] Diagnoses Screening for colon cancer Procedures COLONOSCOPY SCREENING COLONOSCOP W/ OR W/O [facility] SPEC Carson Martines MD [address] [place] [address] [address] Referral ID Status Reason Start Date Expiration Date V isits Requested Visits Authorized [id number] Closed Auto-Generate d Referral 12/06/2021 12/06/2022 1 1 [facility] for visit Narrative* Outpatient Procedure (Routine) - Closed Specialty Diagnoses / Procedures Referred By Katy hill Referred To Contact [facility] Diagnoses Screening for colon cancer Procedures COLONOSCOPY SCREENING COLONOSCOP W/ OR W/O [facility] Carson Abdi MD [address] [place] [address] [address] Referral ID Status Reason Start Date Expiration Date V isits Requested Visits Authorized [id number] Closed Auto-Generate d Referral 12/06/2021 12/06/2022 1 1 [facility] Summary Purpose Family History No Family History Records FoundNo Family History Records Found Advance Directives No Advanced Directives Records FoundDocuments on File Type Date Recorded 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 Advance Directive(s) 03/05/2022 10:51 AM Advance Directive(s) 03/02/2022 1:05 PM Advance Directive(s) 07/08/2019 9:15 AM Advance Directive(s) 06/19/2019 11:52 AM Documents on File Type Date Recorded 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 Advance Directive(s) 03/05/2022 10:51 AM Advance Directive(s) 03/02/2022 1:05 PM Advance Directive(s) 07/08/2019 9:15 AM Advance Directive(s) 06/19/2019 11:52 AM Medications Administered Section Inactive Administered Medications - up to 3 most recent administrations Medication Order MAR Action Action Date Dose Rate Site diphenhydrAMINE 12.5-50 mg injection (BENADRYL) 12.5-50 mg, INTRAVENOUS, DIRECTED, Starting on Sat03/05/22 at 1300, Until Sat03/05/22 at 1659, DOSING DIRECTED BY PHYSICIAN FOR PROCEDURAL SEDATION ONLY, Intraprocedure Given 03/05/2022 12:39 PM EDT 50 mg fentaNYL 50 mcg/mL 25-100 mcg injection (SUBLIMAZE) 25-100 mcg, INTRAVENOUS, DIRECTED, Starting on Sat03/05/22 at 1300, Until Sat03/05/22 at 1659, DOSING DIRECTED BY PHYSICIAN FOR PROCEDURAL SEDATION ONLY, Intraprocedure Given 03/05/2022 12:34 PM EDT 50 mcg lactated ringers iv infusion 30 mL/hr, INTRAVENOUS, CONTINUOUS, Starting on Sat03/05/22 at 1130, Until Sat03/05/22 at 1303, Preprocedure New Bag/Syringe/Bot tle 03/05/2022 11:40 AM EDT 30 mL/hr 30 mL/hr Wrist, Right midazolam (PF) 1-5 mg injection (VERSED) 1-5 mg, INTRAVENOUS, DIRECTED, Starting on Sat03/05/22 at 1300, Until Sat03/05/22 at 1659, DOSING DIRECTED BY PHYSICIAN FOR PROCEDURAL SEDATION ONLY, Intraprocedure Given 03/05/2022 12:36 PM EDT 1 mg Given 03/05/2022 12:34 PM EDT 4 mg Additional Source Comments (unrecognized sect ion and content) No Status Records FoundNo Status Records Found INFORMATION SOURCE (unrecogn ized section and content) DATE CREATED AUTHOR 07/09/2019 [facility] DATE CREATED AUTHOR AUTHOR'S ORGANIZ ATION 05/19/2024 [facility] Source Comments (unrecognize d section and content) In the event this informatio n is protected by the Federal Confidentiality of Alcohol and Drug Abuse Patient Records regulations: The Federal rules restrict any use of the information to criminally investigate or prosecute any alcohol or drug abuse patient.[facility] event this information is protected by the Federal Confidentiality of Alcohol and Drug Abuse Patient Records regulations: The Federal rules restrict any use of the information to criminally investigate or prosecute any alcohol or drug abuse patient.[facility] the event this information is protected by the Federal Confidentiality of Alcohol and Drug Abuse Patient Records regulations: The Federal rules restrict any use of the information to criminally investigate or prosecute any alcohol or drug abuse patient.[facility] the event this information is protected by the Federal Confidentiality of Alcohol and Drug Abuse Patient Records regulations: The Federal rules restrict any use of the information to criminally investigate or prosecute any alcohol or drug abuse patient.[facility] the event this information is protected by the Federal Confidentiality of Alcohol and Drug Abuse Patient Records regulations: The Federal rules restrict any use of the information to criminally investigate or prosecute any alcohol or drug abuse patient.[facility] the event this information is protected by the Federal Confidentiality of Alcohol and Drug Abuse Patient Records regulations: The Federal rules restrict any use of the information to criminally investigate or prosecute any alcohol or drug abuse patient.[facility] Care Teams (unrecognized sec tion and content) Supervisor Grower Relationship Specialty Start Date End Date Kings Moody MD [address], [place] [phone] PCP - General Family Practice 07/11/21 Supervisor Grower Relationship Specialty Start Date End Date Kings Moody MD [address], [place] [id number] PCP - General Family Practice 07/11/21 Supervisor Grower Relationship Specialty Start Date End Date Kings Moody MD [address] [place] [id number] PCP - General Family Practice 07/11/21 Supervisor Grower Relationship Specialty Start Date End Date Kings Moody MD [address] [place] [id number] PCP - General Family Practice 07/11/21 Supervisor Grower Relationship Specialty Start Date End Date Kings Moody MD [address] [place] [address] [address] [place], [place] [address] PCP - General Family Medicine 07/11/21 Reason for Visit (unrecogniz ed section and content) Reason Comments 03-05-2022 Colon ASC DP Reason Comments Insect Bite on right arm happene d last weekend Reason Comments Procedure Follow Up Colonoscopy complete d on 03/05/2022 Reason Comments Dental Problem Left side toothpan x 3 days FOR RECORDS PERTAINING TO PATIENTS WHO ARE OR HAVE BEEN ENROLLED IN A CHEMICAL DEPENDENCY/SUBSTANCEABUSE PROGRAM, SOME INFORMATION MAY BE OMITTED. This clinical summary was aggregated from multiple sources. Caution should be exercised in using it in the provision of clinical care. This summary normalizes information from multiple sources, and as a consequence, information in this document may materially change the coding, format and clinical context of patient data. In addition, data may be omitted in some cases. CLINICAL DECISIONS SHOULD BE BASED ON THE PRIMARY CLINICAL RECORDS. [facility]. provides no warranty or guarantee of the accuracy or completeness of information in this document.
== END | disposition home or self-care (01) ==
LOC: LABSPEC 16:10
PROVIDERS: PCP Family Medicine; Referring Provider Urology; Visit Provider Urology
DX: R97.20 Elevated prostate specific antigen [PSA] (principal)
CPT/HCPCS: 88305; 88341; 88342; G0416

== ENCOUNTER → 2024-10-12 | Outpatient (CLI) | payer OTHER, SELFPAY ==
--- NOTE | 2024-10-12 08:17 | NM_ITS ---
CLINICAL: 64-year-old male with history of primary prostate carcinoma. WHOLE BODY 99m Tc MDP RADIONUCLIDE BONE SCINTIGRAPHY COMPARISON: None available FINDINGS: Following the intravenous administration of 26.2 mCi of 99m Tc MDP, whole body bone images reveal: 1. Increased radiopharmaceutical concentration is identified in the acromioclavicular and sternoclavicular compartments of both shoulders, the patellofemoral compartments of both knees, the medial tibial compartment of the right knee, the left midfoot, the wrist articulations bilaterally. 2. The remaining skeletal structures are scintigraphically unremarkable with normal-appearing renal images and urinary bladder activity identified. Facilitated uptake is noted in the bilateral maxilla commensurate with periodontal disease and/or periostitis. NM/Bone Scan Whole Body IMPRESSION: 1. The increase in radiopharmaceutical concentration identified in the right and left shoulders, both knees, the left midfoot and wrist articulations bilaterally is commensurate with degenerative arthritis. 2. There is no typical scintigraphic evidence of diffuse skeletal metastatic disease on the present evaluation. Electronically Signed: Deric Cardoso DO at 10:05 EST ,
== END | disposition home or self-care (01) ==
PROVIDERS: PCP Family Medicine; Referring Provider Urology; Visit Provider Urology
DX: C61 Malignant neoplasm of prostate (principal)
CPT/HCPCS: 78306; A9503

== ENCOUNTER → 2024-10-14 | Outpatient (CLI) | payer OTHER, SELFPAY ==
--- NOTE | 2024-10-14 18:10 | CT_ITS ---
STUDY: CT ABDOMEN AND PELVIS WITH CONTRAST REASON FOR EXAM: Male, 64 years old. MALIGNANT NEOPLASM OF PROSTATE RADIATION DOSAGE (If Supplied By Facility): CTDIvol = ( 20.50 ) mGy, DLP = ( 1355.41 ) mGycm TECHNIQUE: Transaxial images were obtained from the dome of the diaphragm to the symphysis pubis without oral contrast. IV 100mL Isovue-370 was administered. Sagittal and coronal images were reconstructed. Individualized dose optimization techniques were used for this CT. COMPARISON: None. FINDINGS: The visualized lung bases are unremarkable. The visualized portions of the heart are within normal limits. Normal liver. There is a solitary gallstone. Normal spleen. Normal pancreas. Normal bilateral adrenal glands. Normal right kidney. Normal left kidney. Normal visualized stomach. Normal small intestine. Normal colon. The appendix is visualized and appears normal. Normal abdominal aorta. Normal inferior vena cava. Some prominent retroperitoneal lymph nodes worrisome for early metastatic lymphadenopathy. The largest left periaortic lymph node measures 1.0 x 1.5 cm on image 66. A right iliac lymph node at the level of the iliac bifurcation measures 1.0 x 1.8 cm. Right pelvic sidewall lymphadenopathy measures 1.5 x 2.0 cm on image 110. Normal urinary bladder. There are prostatic calcifications. Normal abdominal wall. Normal osseous structures. CT/Abdomen/Pelvis WITH Contrast IMPRESSION: Suspect early metastatic retroperitoneal lymphadenopathy and correlation with PSMA PET may be useful. Cholelithiasis. Electronically Signed: Deric Medina MD at 9:50 EST ,
[2024-10-14 18:32] LABS: CREATININE FINGERSTICK 1.4 mg/dL (0.70-1.30)
== END | disposition home or self-care (01) ==
PROVIDERS: PCP Family Medicine; Referring Provider Urology; Visit Provider Urology
DX: C61 Malignant neoplasm of prostate (principal)
CPT/HCPCS: 74177; Q9967

== ENCOUNTER 2024-11-26 12:13 | Day surgery (SDC) | payer OTHER, SELFPAY ==
[2024-11-26] VITALS (8 sets, daily range): BP systolic 147–180; BP diastolic 75–83; PULSE 52–57; RESP 16–18; TEMP 36.1–36.4; O2SAT 96–98; BMI 43.5
--- NOTE | 2024-11-26 13:09 | PRE.ANES_ITS ---
ASA Classification* ASA Classification ASA Classification: 3 Assessment & Plan Anesthesia* Anesthesia Assessment Anesthesia Assessment: Discussed sedation and/or anesthesia options, risks, benefits, and alternatives with patient/parents/legal guardian/POA. Questions invited. The patient/parents/legal guardian/POA seems to understand and agrees to proceed with anesthesia plan. Reviewed the physical assessment, medical history, allergy history and patient home medications list prior to surgery/procedure/anesthetic and documented any changes. Performed airway and anesthesia risk assessments. Anesthesia Type Anesthesia Type: MAC History Source History Obtained from:: Patient and Chart Anesthesia Focused Assessment* Temperature: 97.4 F Pulse Rate: 54 Blood Pressure: 180/81 Respiratory Rate: 18 Pulse Ox: 98 Oxygen Delivery Method: Room Air Airway Assessment Mouth opens: >3 cm Mallampati Score: IV Teeth Condition: Caps/Crowns (Patient has chipped tooth #9.) and Missing (Patient is missing several teeth. Rest are tight.) Neck Range of motion (ROM): Limited ROM (Somewhat decreased extension) Focused Labs Anesthesia Preop lab: CBC WBC 7.1 K/mm3 (4.4-11.0) 11/19/24 09:00 RBC 4.31 M/mm3 (4.6-6.2) L 11/19/24 09:00 Hgb 14.0 g/dL (13.0-16.5) 11/19/24 09:00 Hct 40.8 % (40-54) 11/19/24 09:00 Plt Count 224 K/mm3 (150-450) 11/19/24 09:00 CHEMISTRY Potassium 4.1 mmol/L (3.5-5.1) 11/19/24 09:00 Sodium 139 mmol/L (136-145) 11/19/24 09:00 BUN 20 mg/dL (7-18) H 11/19/24 09:00 Creatinine 1.07 mg/dL (0.70-1.30) 11/19/24 09:00 Glucose 126 mg/dL (74-106) H 11/19/24 09:00 COAG Pre-Assessment Diagnosis/Proposed Procedure Planned Operative Procedure(s): PORT PLACEMENT Anesthesia History 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 When Was Last Pacemaker Check QUESTION #4 FULL TEXT: You/Your Family Experience fever (hyperthermia) with Anesthesia Last Oral Intake Last Oral intake: Last Oral Intake NPO since 23:55 11/26/24 12:51 Meds taken in AM with sips of No 11/26/24 12:51 water? Meds patient instructed to take am of surgery PONV PONV - financial recording clerk: PONV - financial recording clerk Female No 11/20/24 10:50 HX of Motion Sickness Yes 11/20/24 10:50 HX of N/V After Surgery No 11/20/24 10:50 Non-Smoker No 11/20/24 10:50 Duration of Surgery greater No 11/20/24 10:50 than 60 minutes Number of Risk Factors 1 11/20/24 10:50 PONV Score Low Risk 11/20/24 10:50 Height & Weight Height & Weight: Anesthesia: Height & Weight Height 5 ft 8 in 11/26/24 12:51 Weight: 130 kg 11/26/24 12:51 Body Mass Index (BMI) 43.5 11/26/24 12:51 Respiratory Assessment Respiratory Assessment - financial recording clerk: Respiratory Tract Infection Hx - financial recording clerk Hx Respiratory Tract Infection Yes: LINGERING COUGH 11/20/24 10:50 Any additional information?: Yes Hx Respiratory Tract Infection: Yes (Patient was sick around giving. Currently still has a lingering cough) STOP Sleep Apnea STOP Sleep Apnea - financial recording clerk: STOP Sleep Apnea - financial recording clerk Hx Hypertension No 11/20/24 10:50 Hx Sleep Apnea No 11/20/24 10:50 CPAP BIPAP Do you snore loudly (louder No 11/20/24 10:50 than talking or can be heard Do you often feel tired/ No 11/20/24 10:50 fatigued/ sleepy during daytime? Has anyone observed you stop No 11/20/24 10:50 breathing during sleep? STOP Results Negative 11/20/24 10:50 QUESTION #5 FULL TEXT : Do you snore loudly (louder than talking or can be heard through closed doors)? 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 Specify any problems Hx of Preganancy in last 3 N/A 11/20/24 10:50 Months Nurse Filling Out Transfusion [facility] 11/20/24 10:50 & Questions: Date: 11/20/24 11/20/24 10:50 Time: 11:02 11/20/24 10:50 Patient unable to answer at this time (ie. confused, unrespo /Reproduction History /Reproductive History - financial recording clerk: /Reproductive Hx- financial recording clerk Hx Now Gestational Age (in weeks): EDC: Hx Hx Para Hx Section SAB PFSH Medical History Wears hearing aid Wears contact lenses Wears glasses Cancer Prostate disease Easy bruising Non-smoker CPAP (continuous positive airway pressure) dependence Encounter for education Urinary calculi Hearing loss Hypertension Elevated PSA Sleep apnea Home Medications ?Medication ?Instructions ?Recorded ?Last Taken ?Type ibuprofen 600 mg tablet 600 mg PO Q8H PRN fever or pain 10/28/24 Unknown History cetirizine 10 mg capsule (Zyrtec) 10 mg PO QDAY PRN allergy symptoms 11/06/24 Unknown History acetaminophen 500 mg tablet 1,000 mg PO Q6H PRN fever or pain 11/17/24 Unknown History calcium carbonate (Calcium 600) 600 mg PO BID 11/17/24 Unknown History dexamethasone 4 mg tablet 8 mg (2 x 4 mg) PO .COMPLEX #12 11/19/24 Unknown Rx tabs lidocaine-prilocaine 2.5 %-2.5 % 1 applic topical ONCE PRN Port 11/19/24 Unknown Rx topical cream access 30 days #30 grams omeprazole 20 mg capsule,delayed 20 mg PO .COMPLEX #30 caps 11/19/24 Unknown Rx release ondansetron 8 mg disintegrating 8 mg PO Q8H PRN nausea and 11/19/24 Unknown Rx tablet vomiting #30 tabs prochlorperazine maleate 10 mg 10 mg PO Q6H PRN nausea and 11/19/24 Unknown Rx tablet vomiting #30 tabs albuterol sulfate 90 mcg/actuation 2 puff inhalation Q4H PRN wheezing 11/20/24 Unknown History aerosol inhaler Allergy/AdvReac Type Severity Reaction Status Date / Time No Known Allergies Allergy Verified 11/23/24 15:11 Family History Mother Myocardial infarction Surgical History History of repair of ACL H/O prostate biopsy History of knee surgery History of hernia repair Social History Smoking Status: Never smoker alcohol intake: current alcohol intake frequency: a few times a month Alcohol type: beer substance use type: does not use Review of Systems (Anesthesia) ROS Narrative System reviewed and no additional complaints, except as documented.
--- NOTE | 2024-11-26 13:18 | HP.PCM_ITS ---
History and Physical Date of Admission: 11/26/24 Intake Vital Signs 11/17/2409:24 11/19/2415:36 11/23/2415:11 Height 5 ft 8 in 5 ft 8 in 5 ft 8 in Weight: 285 lb 287 lb BMI 43.3 43.6 BP 153/89 H 164/81 H Blood Pressure Location Lt brachial Rt brachial Position Sitting Sitting Respiration 16 18 Pulse 61 Pulse Source Monitor Temp 97.8 F Pulse Oximetry (%) 96 Oxygen Delivery Method room air Intake Visit Reasons: PORT PLACEMENT Chief Complaint: port placement Change Management Consultant Required: No Is patient in pain?: No Allergies No Known Allergies Allergy (Verified 11/23/24 15:11) Medications ?Medication ?Instructions ?Recorded ?Confirmed ?Type ibuprofen 600 mg tablet 600 mg PO Q8H PRN fever or pain 10/28/24 11/23/24 History cetirizine 10 mg capsule (Zyrtec) 10 mg PO QDAY PRN allergy symptoms 11/06/24 11/23/24 History acetaminophen 500 mg tablet 1,000 mg PO Q6H PRN fever or pain 11/17/24 11/23/24 History calcium carbonate (Calcium 600) 600 mg PO BID 11/17/24 11/23/24 History dexamethasone 4 mg tablet 8 mg (2 x 4 mg) PO .COMPLEX #12 11/19/24 11/23/24 Rx tabs lidocaine-prilocaine 2.5 %-2.5 % 1 applic topical ONCE PRN Port 11/19/24 11/23/24 Rx topical cream access 30 days #30 grams omeprazole 20 mg capsule,delayed 20 mg PO .COMPLEX #30 caps 11/19/24 11/23/24 Rx release ondansetron 8 mg disintegrating 8 mg PO Q8H PRN nausea and 11/19/24 11/23/24 Rx tablet vomiting #30 tabs prochlorperazine maleate 10 mg 10 mg PO Q6H PRN nausea and 11/19/24 11/23/24 Rx tablet vomiting #30 tabs albuterol sulfate 90 mcg/actuation 2 puff inhalation Q4H PRN wheezing 11/20/24 11/23/24 History aerosol inhaler Have you fallen in the past year?: No PFSH Medical History Wears hearing aid Wears contact lenses Wears glasses Cancer Prostate disease Easy bruising Non-smoker CPAP (continuous positive airway pressure) dependence Encounter for education Urinary calculi Hearing loss Hypertension Elevated PSA Sleep apnea Surgical History History of repair of ACL H/O prostate biopsy History of knee surgery History of hernia repair Family History Mother Myocardial infarction Social History Smoking Status: Never smoker alcohol intake: current alcohol intake frequency: a few times a month Alcohol type: beer substance use type: does not use HPI HPI HPI: Patient is a 64-year-old male here to discuss port placement for prostate cancer. ROS General General: Yes fatigue; No weight change, appetite, colon cancer, breast cancer or weakness HEENT HEENT: No difficulty swallowing, eye injury, eye surgery, swollen glands or hoarseness Endo Endocrine: No thyroid disease, diabetes mellitus, thyroid cancer, Hair loss, heat intolerance or cold intolerance Skin Skin: No rash or changing moles Breast Breast: No left breast lump, right breast lump, nipple discharge, breast pain, abnormal mammogram, abnormal US or breast enlargement Musc Musculoskeletal: Yes back problems; No arthritis, rheumatoid arthritis, gout or joint pain Cardio Cardiovascular: No murmur, pacemaker, heart disease, atrial fibrillation, high blood pressure, heart attack, heart stent, palpitations, shortness of breat with exertion or chest pain Psych Psychiatric: No depression, anxiety or hearing voices Resp Respiratory: No shortness of breath, Yes sleep apnea, Yes cough, No COPD, No asthma, No emphysema and No wheezing Gastro Gastrointestinal: No abdominal pain, No nausea or vomiting, No diarrhea, No constipation, No blood in stool, No acid reflux, No hemorrhoids, No ulcers, No gallbladder problem and No black,tarry stools Derek Hematologic: No blood thinners, No blood disorders, No bleeding, No anemia and No blood clots Neuro Neurologic: No system reviewed and no additional complaints, except as documented, No as per HPI, No abnormal gait, No abnormal hearing, No abnormal movements, No abnormal speech, No behavioral changes, No burning sensations, No confusion, No convulsions, No disequilibrium, No dizziness, No localized weakness, No frequent falls, No headache(s), No lack of coordination, No loss of vision, No memory loss, Yes numbness, No other visual disturbances, No radicular pain, No restless legs, No sensory deficit, No syncope, Yes tingling, No tremor(s), No weakness and No other Exam Const General: cooperative Orientation: alert and oriented x3 HENMT Head: normal to inspection Neck Neck: normal visual inspection and full ROM Chest Chest palpation & inspection: normal inspection of the chest Resp Effort & Inspection: normal respiratory effort Auscultation: clear to auscultation bilaterally Cardio Rate: regular rate Rhythm: regular rhythm GI Inspection: non-distended Palpation: soft and nontender Skin General: no rashes or lesions noted Neuro General: patient alert and patient oriented x3 Extrem General: full ROM Psych Appearance: grossly normal Mental Status: mental status grossly normal Assessment and Plan Assessment and Plan (1) Prostate cancer metastatic to bone: Status: Acute Comment: Discussed disease status, treatment with Chemotherapy, ADT and androgen sudha. Pt agrees to proceed with chemotherapy. (2) Encounter for adjustment and management of vascular access device: Status: Acute Plan: I discussed the chest port placement. I discussed placement on the right. I discussed the risks including but not limited to bleeding, infection, pneumothorax, line infection or DVT. Patient understands the risks and is willing to proceed with right chest port placement. Patient is scheduled for . Jemal Juarez MD Pager: [facility] [address] [place] [address], [address] [place] [address] Office: I have seen and examined the patient and reviewed the H&P and there are no changes
[2024-11-26] MEDS: Cefazolin 3 GM in Syringe 1 EACH IV (13:46)
[2024-11-26] MEDS: Lidocaine 1%/Epi 1:200 (30ml) 30 ML AMPUL (14:10)
[2024-11-26] MEDS: Bupivacaine Mpf 0.5% 30 ML VIAL (14:10)
--- NOTE | 2024-11-26 14:18 | PCM.POST.ANE ---
Anesthesia: Postop Eval I Current Vital Signs Temperature: 96.9 F Pulse Rate: 57 Blood Pressure: 155/83 Respiratory Rate: 16 Pulse Ox: 96 Oxygen Delivery Method: Room Air Assessment Airway patent: Yes Spontaneous unlabored respirations: Yes Mental status: Awake and Calm nausea: No Vomiting: No Anesthesia Complication: No Fluid Hydration Crystalloid volume administer (ml): 50 Total IV fluid infused: 50 Progress Note Anesthesia document: Postop Eval 1 completed: Yes
--- NOTE | 2024-11-26 14:21 | OP.PCM_ITS ---
Operative Report (Standard) Operative Information Date of Procedure: 11/26/24 Pre-Operative Diagnosis: Need for vascular access for chemotherapy Post-Operative Diagnosis: Same Surgery/Procedure Performed: Ultrasound and fluoroscopy guided right chest port placement utilizing right IJ solar power installer: No Type of Anesthesia: Local MAC RN Documented Start/Stop Times: Operation Date: 11/26/24 13:40 Case Time Into Pre-Op 11/26/24 12:24 Out of Pre-Op 11/26/24 13:41 Anesthesia Start 11/26/24 13:46 Into Room 11/26/24 13:46 Procedure Start 11/26/24 14:00 Procedure End 11/26/24 14:13 Anesthesia End 11/26/24 14:15 Out of Room 11/26/24 14:15 Into Recovery 11/26/24 14:17 Procedure Start Time: 14:00 Procedure Stop Time: 14:13 Select all DRAINS/GRAFTS/IMPLANTS that apply: Prosthetic device Prosthetic device details: 8 [place] PowerPort Special Medications: 8 [place] PowerPort Estimated Blood Loss: 5 Specimen collected: No Description of surgery: After obtaining informed consent patient was brought back to the operating room MAC anesthesia was induced and the right chest and neck were prepped in normal sterile fashion. Ultrasound was used to evaluate both IJs and the right IJ was selected. Next, using a needle, the right IJ was accessed and a guidewire was passed on into the superior vena cava under fluoroscopy guidance. A small incision was made over the puncture site and the dilator introducer was placed over the guidewire. Next this was capped and the pocket was made for the port. 1% lidocaine with epinephrine was injected in the proposed port site. An incision was made with scalpel. Electrocautery was used to make a pocket under the skin and subcutaneous tissue. Hemostasis was obtained. Next, the catheter was tunneled up to the neck incision site and placed through the introducer. The peel-away introducer was removed and the position of the catheter was confirmed on fluoroscopy. Next, the catheter was trimmed and attached to the port with the locking device. Interrupted 2-0 Vicryl sutures were used to anchor the port to the chest wall and then the port was placed inside the pocket. The pocket was then flushed with saline and the port irrigated with saline. There was good blood return and the port flushed easily. Next, heparin was injected into the port. The skin was closed with subcutaneous interrupted 3-0 Vicryl sutures. A single 3-0 Vicryl sutures placed under the skin at the neck incision site. Steri-Strips were placed as well as op sites. Patient toldayne rated procedure well, was taken to PACU in stable condition. Chest x-ray will be obtained. Surgical Findings: None Complications Complications: No Admit VTE Documentation VTE Mechan Device Prophylaxis: SCD's
--- NOTE | 2024-11-26 14:22 | DCINST_ITS ---
Discharge Instructions Procedure Port-A-Cath Diet Discharge Diet: Light diet - advance as tolerated (Pain medication may cause nausea. You should typically eat light foods as you take your pain medication.) Activity Discharge Activity: Return to Normal Activity and May Shower (with your bandage in place in 1-2 days after surgery) Additional Activity Instructions:: Take Tylenol and ibuprofen for pain control. Dressing / Incision Call your doctor if your incision/area has: Continuous Slow Oozing, Sudden Increased Bleeding, Increased Pain/ Swelling, Increased Redness and Foul Smelling Discharge Call your doctor if you observe: Fever of 101 or Higher Remove Dressing in: 2 days (Leave Steri-Strips on for 7 days) Cleanse incision/area with: Soap & Water Follow Up Care Please Follow Up With: Jemal Juarez MD When: as needed [phone] Test Results: Test results from this visit will be discussed in further detail at your follow- up appointment, if applicable. Discharge Plan Admission Attending Provider: Jemal Juarez Primary Care Provider: Dani Moody Instructions Print Language: Hungarian Discharge Orders/Prescriptions Prescriptions: No Action Zyrtec 10 mg capsule 10 mg PO QDAY PRN (Reason: allergy symptoms) ibuprofen 600 mg tablet 600 mg PO Q8H PRN (Reason: fever or pain) calcium carbonate [Calcium 600] 600 mg calcium (1,500 mg) tablet 600 mg PO BID acetaminophen 500 mg tablet 1,000 mg PO Q6H PRN (Reason: fever or pain) lidocaine-prilocaine 2.5-2.5 % cream 1 applic topical ONCE PRN (Reason: Port access) 30 Days Qty: 30 2RF dexamethasone 4 mg tablet 8 mg PO .COMPLEX Qty: 12 5RF Rx Instructions: 8 mg orally twice daily ONLY the day before, the day of, and the day after chemotherapy ondansetron 8 mg tablet,disintegrating 8 mg PO Q8H PRN (Reason: nausea and vomiting) Qty: 30 2RF prochlorperazine maleate 10 mg tablet 10 mg PO Q6H PRN (Reason: nausea and vomiting) Qty: 30 2RF omeprazole 20 mg capsule,delayed release(DR/EC) 20 mg PO .COMPLEX Qty: 30 1RF Rx Instructions: 20 mg orally daily the day before, the day of, and the day after chemotherapy and as needed heartburn daily. albuterol sulfate 90 mcg/actuation HFA aerosol inhaler 2 puff inhalation Q4H PRN (Reason: wheezing) Referrals / Follow Up: Dani Moody MD [Primary Care Provider] - Disposition Disposition (needs filled in before D/C Order can be placed): Home, Self Care
--- NOTE | 2024-11-26 14:24 | RAD_ITS ---
EXAM: XR CHEST, 1 VIEW CLINICAL INDICATION: line placement -- in pacu TECHNIQUE: Frontal view of the chest. COMPARISON: XR Chest dated 04/02/2022 FINDINGS: LUNGS AND PLEURAL SPACES: Normal. No consolidation or edema. No pneumothorax. No effusion. HEART: Normal heart size. MEDIASTINUM: No mediastinal or hilar mass. BONES/JOINTS: No acute abnormality. TUBES, LINES AND DEVICES: Right internal jugular central venous catheter tip in the distal superior vena cava. RAD/CXR for Line Placement IMPRESSION: No acute cardiopulmonary abnormality. Electronically Signed: Rajesh Hernández MD at 15:23 EST ,
--- NOTE | 2024-11-26 15:11 | POSTOPAN2_ITS ---
Anesthesia Postop Eval I Sum Postop Eval Completion status Anesthesia document: Postop Eval 1 completed: Yes Anesthesia Postop Eval I Summary Anesthesia Postop Eval I Summary: Anesthesia Postop Eval I: Assessment Summary Airway patent Yes 11/26/24 14:19 ENGINEERING ADMINISTRATOR.[email or web address] Spontaneous unlabored Yes 11/26/24 14:19 ENGINEERING ADMINISTRATOR.[email or web address] respirations Mental status Awake,Calm 11/26/24 14:19 ENGINEERING ADMINISTRATOR.[email or web address] nausea No 11/26/24 14:19 ENGINEERING ADMINISTRATOR.[email or web address] Vomiting No 11/26/24 14:19 ENGINEERING [email or web address].[email or web address] Anesthesia Postop Eval I: Fluid Summary Crystalloid volume administer 50 11/26/24 14:19 ENGINEERING ADMINISTRATOR.[email or web address] (ml) Colloids volume administered ( ml) Blood Product volume administered (ml) Total IV fluid infused 50 11/26/24 14:19 ENGINEERING ADMINISTRATOR.[email or web address] Anesthesia Postop Eval I: Summary Notes Anesthesia Complication No 11/26/24 14:19 ENGINEERING ADMINISTRATOR.[email or web address] Anesthesia Complication Comment: Post-operative progress note Anesthesia: Postop Eval II Evaluation Mental status: Awake and Calm Pain Level: 0 nausea: No Vomiting: No Complications Anesthesia Complication: No
--- NOTE | 2024-11-26 15:11 | PCM.POSTANE2 ---
Anesthesia Postop Eval I Sum Postop Eval Completion status Anesthesia document: Postop Eval 1 completed: Yes Anesthesia Postop Eval I Summary Anesthesia Postop Eval I Summary: Anesthesia Postop Eval I: Assessment Summary Airway patent Yes 11/26/24 14:19 PUPPY [email or web address] Spontaneous unlabored Yes 11/26/24 14:19 PUPPY [email or web address].[email or web address] respirations Mental status Awake,Calm 11/26/24 14:19 PUPPY [email or web address] nausea No 11/26/24 14:19 PUPPY [email or web address].[email or web address] Vomiting No 11/26/24 14:19 PUPPY [email or web address] Anesthesia Postop Eval I: Fluid Summary Crystalloid volume administer 50 11/26/24 14:19 PUPPY [email or web address] (ml) Colloids volume administered ( ml) Blood Product volume administered (ml) Total IV fluid infused 50 11/26/24 14:19 PUPPY [email or web address] Anesthesia Postop Eval I: Summary Notes Anesthesia Complication No 11/26/24 14:19 PUPPY [email or web address].[email or web address] Anesthesia Complication Comment: Post-operative progress note Anesthesia: Postop Eval II Evaluation Mental status: Awake and Calm Pain Level: 0 nausea: No Vomiting: No Complications Anesthesia Complication: No
== END 2024-11-26 15:36 | disposition home or self-care (01) ==
LOC: SDC 12:17 → AC 12:20
PROVIDERS: PCP Family Medicine; Referring Provider Surgery; Visit Provider Surgery
PROC: (CPT 36561; principal; 2024-11-26 13:25)
DX: Z45.2 Encounter for adjustment and management of vascular access device (principal); C79.51 Secondary malignant neoplasm of bone; C61 Malignant neoplasm of prostate; G47.30 Sleep apnea, unspecified; Z79.51 Long term (current) use of inhaled steroids
CPT/HCPCS: 36561; 00532; 71045; 77001; A4216; C1788; J2405

== ENCOUNTER → 2025-03-12 | Outpatient (CLI) | payer OTHER, SELFPAY ==
--- NOTE | 2025-03-12 09:50 | ECHOCSONC_ITS ---
Reason For Study Reason For Study: CARDIOTOXIC DRUGS Procedure This was a 2D Doppler, Color Flow transthoracic echocardiogram. The study was technically difficult. Contrast injection was performed. Exam performed in department. Left Ventricle Normal LV size. Left ventricular systolic function is normal. The left ventricular ejection fraction is 55 %. No regional wall motion abnormalities noted. Right Ventricle Normal RV size. Normal systolic function. Atria Normal left atrium. Normal right atrium. Mitral Valve Normal mitral valve. Tricuspid Valve Normal tricuspid valve. Aortic Valve Trisinus/trileaflet aortic valve. Pulmonic Valve Normal pulmonic valve. Great Vessels Normal aortic root. The pulmonary artery is normal size. Inferior vena cava collapse with respiration. Pericardium/Pleural No pericardial effusion. Medication 22 gauge I.V. with prn adaptor inserted into right arm. Diluted definity 1ml given slow IV push to enhance endocardial definition. MMode/2D Measurements & Calculations Ao root diam: 3.5 cm LAV(MOD-sp4): 51.6 ml LVAd ap4: 36.1 cm2 LVLd ap4: 8.6 cm EDV(MOD-sp4): 123.7 ml EDV(sp4-el): 129.1 ml LVAs ap4: 17.3 cm2 LVLs ap4: 6.7 cm ESV(MOD-sp4): 34.8 ml ESV(sp4-el): 37.7 ml EF(MOD-sp4): 71.9 % EF(sp4-el): 70.8 % SV(MOD-sp4): 88.9 ml SV(sp4-el): 91.4 ml LA A4 area: 19.0 cm2 SI(MOD-sp4): 38.0 ml/m2 LA dimension(2D): 3.6 cm RA A4 area: 16.1 cm2 Time Measurements MV dec time: 0.21 sec Doppler Measurements & Calculations MV E max justin: 79.2 cm/sec Lat Peak E' Justin: 13.9 cm/sec Med Peak E' Justin: 9.5 cm/sec MV A max justin: 77.2 cm/sec E/E' lat: 5.7 E/E' med: 8.4 MV E/A: 1.0 MV V2 max: 93.9 cm/sec MV dec slope: 381.6 cm/sec2 Ao V2 max: 155.8 cm/sec MV max P.5 mmHg Ao max P.7 mmHg MV V2 mean: 60.0 cm/sec Ao V2 mean: 107.9 cm/sec MV mean P.6 mmHg Ao mean P.3 mmHg MV V2 VTI: 36.3 cm Ao V2 VTI: 38.2 cm AV (velocity ratio): 0.76 LV V1 max: 126.2 cm/sec PA V2 max: 95.2 cm/sec LV V1 max P.4 mmHg PA V2 mean: 67.3 cm/sec LV V1 mean P.4 mmHg LV V1 mean: 86.4 cm/sec LV V1 VTI: 29.1 cm ECHO/ONC Echo Complete W/ Contrast Interpretation Summary Normal LV size. Left ventricular systolic function is normal. The left ventricular ejection fraction is 55 %. Contrast injection was performed. Ordering Physician: Yousuf Dhillon Referring Physician: Yousuf Dhillon Performed By: Phyllis Dc RCS
== END | disposition home or self-care (01) ==
LOC: CVS 09:47
PROVIDERS: PCP Family Medicine; Referring Provider Internal Medicine Medical Oncology; Visit Provider Internal Medicine Medical Oncology
DX: C61 Malignant neoplasm of prostate (principal)
CPT/HCPCS: 93306; 93356; Q9957; A4216; C8929

== ENCOUNTER 2025-03-14 08:23 | Emergency (ER) | payer OTHER, SELFPAY ==
[2025-03-14 08:24] VITALS: BP 169/70; PULSE 88; RESP 20; TEMP 37.7; O2SAT 96; BMI 45.3
[2025-03-14 08:51] VITALS: PULSE 83; RESP 22
[2025-03-14] MEDS: Albuterol 2.5 MG/3 ML VIAL.NEB. INHALATION ×3 (08:51→08:52)
--- NOTE | 2025-03-14 09:07 | EX.ED.DYSGE1 ---
HPI History of Present Illness Chief Complaint: Fever Detail of Chief Complaint: Fever of 101.7 at home with upper respiratory type infectious symptoms Informant: patient and spouse/S.O. Onset/Context/Timing Onset: Today Context: Sudden Onset Quality: Patient is under the care of Dr. Yousuf Dhillon for stage IV prostate cancer. Location: Generalized, fever and respiratory symptoms Current Severity: Moderate Maximum Severity: Moderate Worsened by: Nothing specific Relieved by: Nothing Associated Symptoms Associated Symptoms: Runny nose, congestion, cough Narrative Narrative: Patient is 64-year-old male. He has history of stage IV prostate cancer. He is receiving his chemo care at [facility] and directed by Dr. Yousuf Dhillon. He his last chemo was 3 weeks ago. He states normally he has no symptoms. He was told if his temperature ever went above 100.4 that he is to report to the emergency department. It was 101.7. He denies headache, visual, ocular auditory symptoms. He does endorse rhinorrhea congestion. His cough is slightly productive. He does report some mild shortness of breath with activity. He is a none smoker. He denies increased orthopnea from baseline. He does have a history of obstructive sleep apnea. He states last evening he had difficulty breathing. He was recently placed on furosemide for swelling of his legs. His legs are not as swollen. He is presently not taking furosemide. Patient denies nausea, vomiting or diarrhea. Patient denies dysuria, frequency, urgency or hematuria. Prior similar symptoms: Yes Recent Illness/Hospitalization: No PFSH [facility] Medical History Rash Palmar plantar erythrodysaesthesia Encounter for chemotherapy management Wears hearing aid Wears contact lenses Wears glasses Cancer Prostate disease Easy bruising Non-smoker CPAP (continuous positive airway pressure) dependence Encounter for education Urinary calculi Hearing loss Hypertension Elevated PSA Sleep apnea Home Medications ?Medication ?Instructions ?Recorded ?Last Taken ?Type ibuprofen 600 mg tablet 600 mg PO Q8H PRN fever or pain 10/28/24 Unknown History cetirizine 10 mg capsule (Zyrtec) 10 mg PO QDAY PRN allergy symptoms 11/06/24 Unknown History acetaminophen 500 mg tablet 1,000 mg PO Q6H PRN fever or pain 11/17/24 Unknown History calcium carbonate (Calcium 600) 600 mg PO BID 11/17/24 Unknown History dexamethasone 4 mg tablet 8 mg (2 x 4 mg) PO .COMPLEX #12 11/19/24 Unknown Rx tabs lidocaine-prilocaine 2.5 %-2.5 % 1 applic topical ONCE PRN Port 11/19/24 Unknown Rx topical cream access 30 days #30 grams ondansetron 8 mg disintegrating 8 mg PO Q8H PRN nausea and 11/19/24 Unknown Rx tablet vomiting #30 tabs prochlorperazine maleate 10 mg 10 mg PO Q6H PRN nausea and 11/19/24 Unknown Rx tablet vomiting #30 tabs albuterol sulfate 90 mcg/actuation 2 puff inhalation Q4H PRN wheezing 11/20/24 Unknown History aerosol inhaler darolutamide 300 mg tablet (Nubeqa) 600 mg PO BID 12/21/24 Unknown History omeprazole 20 mg capsule,delayed 20 mg PO .COMPLEX #30 caps 01/21/25 Unknown Rx release furosemide 40 mg tablet (Lasix) 40 mg PO QDAY #14 tabs 02/22/25 Unknown Rx albuterol sulfate 90 mcg/actuation 2 puff inhalation Q4H PRN PRN 03/14/25 Unknown Rx aerosol inhaler (Ventolin HFA) Wheezing ##1 Allergy/AdvReac Type Severity Reaction Status Date / Time No Known Allergies Allergy Verified 03/14/25 08:36 Family History Mother Myocardial infarction Surgical History History of repair of ACL H/O prostate biopsy History of knee surgery History of hernia repair Social History Smoking Status: Never smoker alcohol intake: current alcohol intake frequency: a few times a month Alcohol type: beer substance use type: does not use EXAM Physical Exam Const Vital Signs: 03/14/25 08:24 03/14/25 08:33 03/14/25 08:51 Temperature 99.9 F H Temperature Source Oral Pulse Rate 88 83 Respiratory Rate 20 H 22 H Respiratory Effort Short of Breath Respiratory Pattern Normal Tachypnea Blood Pressure 169/70 H Blood Pressure Mean 103 Pulse Ox 96 Oxygen Delivery Method Room Air [facility] History & Record Review Additional record(s) reviewed:: Prior outpatient record (Most recent office note authored by Dr. Yousuf Dhillon dated February 22, 2025 was reviewed.) and Prior labs Lab Data Labs: Laboratory Results - last 24 hr 03/14/25 09:05 WBC 10.7 RBC 3.33 L Hgb 11.1 L Hct 32.7 L MCV 98.2 H MCH 33.3 H MCHC 33.9 RDW Std Deviation 49.2 H RDW Coeff of Edmundo 13.8 Plt Count 170 MPV 9.6 Immature Gran % (Auto) 1.300 H Neut % (Auto) 82.0 H Lymph % (Auto) 7.4 L [place] % (Auto) 8.5 Eos % (Auto) 0.1 Baso % (Auto) 0.7 Absolute Neuts (auto) 8.8 H Absolute Lymphs (auto) 0.79 L Nucleated RBC % 0 Sodium 138 Potassium 4.4 Chloride 106 Carbon Dioxide 22.7 Anion Gap 10 BUN 19 Creatinine 1.23 H Estim Creat Clear Calc 80.64 Est GFR (MDRD) Non-Af 65 BUN/Creatinine Ratio 15.8 Glucose 129 H Lactic Acid 1.2 Calcium 8.7 Total Bilirubin 0.40 AST 29 ALT 28 Alkaline Phosphatase 57 Total Protein 5.7 L Albumin 3.6 Globulin 2.1 L Albumin/Globulin Ratio 1.7 Radiography Diagnostic Testing: Clinical Impression(s) from Imaging Studies Chest X-Ray 03/14/25 09:30 IMPRESSION: NO ACUTE FINDINGS. Reading Location: [facility] Management Discussion w/another healthcare provider: [employer] Operator (Spoke to Dr. Garcia on-call for oncology. Agrees chemo will be held. Patient was informed of this.) Discharge Plan Triage Chief Complaint: Fever ED Provider: Romain Peterson Dx/Rx/DC Orders Clinical Impression: COVID-19 virus infection, Elevated blood pressure reading in office with white coat syndrome, without diagnosis of hypertension, Fever, Prostate cancer metastatic to bone Instructions: Coronavirus Disease 2019 (COVID-19): Caring for Yourself or Others Prescriptions: New albuterol sulfate [Ventolin HFA] 90 mcg/actuation HFA aerosol inhaler 2 puff inhalation Q4H PRN PRN (Reason: Wheezing) Qty: 1 0RF No Action Zyrtec 10 mg capsule 10 mg PO QDAY PRN (Reason: allergy symptoms) ibuprofen 600 mg tablet 600 mg PO Q8H PRN (Reason: fever or pain) calcium carbonate [Calcium 600] 600 mg calcium (1,500 mg) tablet 600 mg PO BID acetaminophen 500 mg tablet 1,000 mg PO Q6H PRN (Reason: fever or pain) lidocaine-prilocaine 2.5-2.5 % cream 1 applic topical ONCE PRN (Reason: Port access) 30 Days Qty: 30 2RF dexamethasone 4 mg tablet 8 mg PO .COMPLEX Qty: 12 5RF Rx Instructions: 8 mg orally twice daily ONLY the day before, the day of, and the day after chemotherapy ondansetron 8 mg tablet,disintegrating 8 mg PO Q8H PRN (Reason: nausea and vomiting) Qty: 30 2RF prochlorperazine maleate 10 mg tablet 10 mg PO Q6H PRN (Reason: nausea and vomiting) Qty: 30 2RF Nubeqa 300 mg tablet 600 mg PO BID furosemide [Lasix] 40 mg tablet 40 mg PO QDAY Qty: 14 0RF omeprazole 20 mg capsule,delayed release(DR/EC) 20 mg PO .COMPLEX Qty: 30 3RF Rx Instructions: 20 mg orally daily the day before, the day of, and the day after chemotherapy and as needed heartburn daily. albuterol sulfate 90 mcg/actuation HFA aerosol inhaler 2 puff inhalation Q4H PRN (Reason: wheezing) Primary Care Provider: Dani Moody Referrals: Dani Moody MD [Primary Care Provider] - As Needed Yousuf Dhillon MD [Med Staff - Active Staff] - Activity Restrictions/Additional Instructions: Spoke to oncology. They agree chemo will be held. You will need to reschedule. 2 puffs of inhaler every 2-4 hours while awake for the next 3 days then every 4-6 hours as needed Print Language: Sinhala Disposition Disposition: Home, Self Care
[2025-03-14 09:16] LABS: Absolute Lymphocyte Count 0.79 X10^3/uL (0.83-4.51); Absolute Neutrophil Count 8.8 X10^3/uL (2.0-7.7); Basophil# 0.07 X10^3/uL; Basophil% 0.7 % (0-1); Eosinophil# 0.01 X10^3/uL; Eosinophils% 0.1 % (0-5); Hematocrit 32.7 % (40-54); Hemoglobin 11.1 g/dL (13.0-16.5); Lymphocyte # 0.79 X10^3/ul (0.83-4.51); Lymphocyte % 7.4 % (19-41); Mean Corp Hgb Conc 33.9 g/dL (32-36); Mean Corpuscular Hgb 33.3 pg (27.0-32.0); Mean Corpuscular Volume 98.2 fL (80-94); Mean Platelet Vol. 9.6 fl (6.2-12.0); Monocyte# 0.91 X10^3/uL; Monocyte% 8.5 % (0-10); NRBC Flagged by Analyzer 0 % (0-5); Platelet Count 170 K/mm3 (150-450); RBC Distribution Width CV 13.8 % (11.6-14.6); RBC Distribution Width SD 49.2 fl (35.1-43.9); Red Blood Count 3.33 M/mm3 (4.6-6.2); White Blood Count 10.7 K/mm3 (4.4-11.0)
--- NOTE | 2025-03-14 09:30 | RAD_ITS ---
PROCEDURE: CHEST PA AND LATERAL 03/14/2025 REASON FOR EXAM: COUGH, FEVER, CHEMO 3 WEEKS AGO, WHEEZING TECHNIQUE: Frontal and lateral views of the chest. COMPARISON: None. FINDINGS: Hardware: Right IJ chest port with tip overlying the right atrium. Heart: The heart size is normal. Mediastinum: The mediastinal contour is unremarkable. Lungs: Bibasilar atelectasis/scarring. No focal consolidation, pleural effusion or pneumothorax. Bones: Degenerative changes are identified within the thoracic spine. Arthrosis of the bilateral glenohumeral joints. RAD/Chest PA and Lateral IMPRESSION: NO ACUTE FINDINGS. Reading Location: [id number]
[2025-03-14 09:43] LABS: ALB/GLOB Ratio 1.7 RATIO (0.9-2.4); AST(SGOT) 29 U/L (<=37); Alanine Aminotransfer ALT/SGPT 28 U/L (<=46); Albumin, Serum 3.6 g/dL (3.4-4.8); Alkaline Phosphatase 57 U/L (40-129); Anion Gap 10 (5-15); BUN 19 mg/dL (4-19); BUN/Creat Ratio 15.8 RATIO (10-20); Calcium,Total 8.7 mg/dL (7.6-11.0); Carbon Dioxide 22.7 mmol/L (21.0-32.0); Chloride 106 mmol/L (98-108); Creatinine, Serum 1.23 mg/dL (0.70-1.20); EST Glomerular Filtration Rate 65 (>60); Estimated Creatinine Clearance 80.64 ml/min (50-250); Globulin 2.1 g/dL (2.2-4.2); Glucose 129 mg/dL (70-99); Lactic Acid 1.2 mmol/L (0.0-2.0); Potassium 4.4 mmol/L (3.3-5.1); Protein, Total 5.7 g/dL (5.9-8.4); Sodium Level 138 mmol/L (133-145)
[2025-03-14 10:24] VITALS: BP 158/78; PULSE 81; RESP 18; TEMP 36.9; O2SAT 97
== END 2025-03-14 10:25 | disposition home or self-care (01) ==
PROVIDERS: Emergency Provider Emergency Medicine; PCP Family Medicine; Visit Provider Emergency Medicine
DX: U07.1 COVID-19 (principal); C79.51 Secondary malignant neoplasm of bone; C61 Malignant neoplasm of prostate; R50.9 Fever, unspecified; R03.0 Elevated blood-pressure reading, without diagnosis of hypertension; Z92.21 Personal history of antineoplastic chemotherapy; I10 Essential (primary) hypertension; G47.30 Sleep apnea, unspecified; Z99.89 Dependence on other enabling machines and devices
CPT/HCPCS: 71046; 80053; 83605; 85025; 87631; 94640; 99284; A4216